=== PATIENT | male | born 1955 | race Caucasian/White ===

== ENCOUNTER 2020-08-14 09:46 | Outpatient (CLI) | payer OTHER, SELFPAY ==
--- NOTE | ~2020-08-14 | MR_ITS ---
EXAMINATION: MR shoulder LT wo con DATE: 08/14/2020 10:38 INDICATION: Left shoulder pain TECHNIQUE: Magnetic resonance imaging (MRI) of the left shoulder was performed without intravenous co ntrast. Sequences included axial PD-weighted FS FSE, coronal oblique PD-weighted FS FSE, coronal obli que T2-weighted FS FSE, sagittal PD-weighted FS FSE, and sagittal T1-weighted SE. COMPARISON: None. FINDINGS: Coracoacromial arch: The acromion undersurface is minimally curved in morphology (type I-II). The coracoacromial ligament is normal. Moderate acromioclavicular osteoarthritis with small inferiorly directed osteophytes. Rotator cuff: Mild supraspinatus and infraspinatus tendinopathy. Small full-thickness tear along the superior facet footplate of the posterior supraspinatus tendon which measures 6 mm AP along the articular side and 3 mm at the bursal side of the tear and without retraction measuring 2 mm medial to lateral. The jelani s minor tendon is normal. Mild to moderate subscapularis tendinopathy with mild intrasubstance split tearing extending up to 1.2 cm medially from the lesser tuberosity footplate both without measurable tear defect or retracted tear margin. Normal rotator cuff muscle bulk and signal. Biceps tendon, glenoid labrum and glenohumeral cartilage: Mild tendinopathy and longitudinal split tearing at the junction of the intra and extra articular hernan g head biceps tendon which is partially subluxed across the medial rim of the intertubercular groove along the longitudinal split tears at the cephalad aspect of the subscapularis tendon. Glenoid labrum is normal. Small region of deep chondral fissuring with underlying subarticular cystic change at the anteroinferior rim of the glenoid. Remaining cartilage in the glenohumeral joint appears normal. Fluid: Mild tenosynovitis with small amount of fluid in the long head biceps tendon sheath. There is also a small minimal joint effusion with mild synovitis at the axillary recess. No loose osteochondral yogesh s. There is extension of fluid from the glenohumeral joint space into the subacromial/subdeltoid burs a where there is additional synovitis consistent with mild bursitis. Bones: Aside from the mild degenerative some reticular edema at the acromioclavicular joint and mild cystic change at the anteroinferior glenoid there is normal marrow signal. No fracture or pathologic marrow replacing process. IMPRESSION: 1. Mild supraspinatus and infraspinatus tendinopathy with small full-thickness tear at the posterior supraspinatus tendon insertion. 2. Mild subscapularis tendinopathy with small longitudinal split tears arising along the lesser tuber osity footplate. 3. Mild bicipital tenosynovitis with mild tendinopathy and longitudinal split tearing of the tendon w hich is partially subluxed along the cephalad aspect of the medial rim of the intertubercular groove at the site of one of the subscapularis tendon split tears. 4. Mild subacromial/subdeltoid bursitis. 5. Mild glenohumeral and moderate acromioclavicular osteoarthritis. Reviewed, dictated and finalized at location B. IMPRESSION: 1. Mild supraspinatus and infraspinatus tendinopathy with small full-thickness tear at the posterior supraspinatus tendon insertion. 2. Mild subscapularis tendinopathy with small longitudinal split tears arising along the lesser tuberosity footplate. 3. Mild bicipital tenosynovitis with mild tendinopathy and longitudinal split t earing of the tendon which is partially subluxed along the cephalad aspect of t he medial rim of the intertubercular groove at the site of one of the subscapul chun tendon split tears. 4. Mild subacromial/subdeltoid bursitis. 5. Mild glenohumeral and moderate acromioclavicular o
== END 2020-08-14 09:47 | disposition home or self-care (01) ==
PROVIDERS: PCP Family Medicine; Visit Provider Physician Assistant
DX: M25.512 Pain in left shoulder (principal); M19.012 Primary osteoarthritis, left shoulder; M75.52 Bursitis of left shoulder
CPT/HCPCS: 73221

== ENCOUNTER 2020-08-27 01:47 | Outpatient (CLI) | payer OTHER, SELFPAY ==
[2020-08-27 18:17] LABS: SARS-CoV-2 RNA PCR Negative
== END 2020-08-27 01:48 | disposition home or self-care (01) ==
LOC: ANHCOVIDDT 01:47
PROVIDERS: PCP Family Medicine; Visit Provider Orthopaedic Surgery
DX: Z01.812 Encounter for preprocedural laboratory examination (principal); Z20.828 Contact with and (suspected) exposure to other viral communicable diseases
CPT/HCPCS: 87635; C9803; U0003

== ENCOUNTER 2020-08-29 01:40 | Day surgery (SDC) | payer OTHER, SELFPAY ==
[2020-08-25 09:23] VITALS: BMI 25.7
[2020-08-29] VITALS (9 sets, daily range): BP systolic 149–166; BP diastolic 86–115; PULSE 64–82; RESP 10–16; TEMP 36.1–36.4; O2SAT 93–99
--- NOTE | 2020-08-29 07:27 | WPDHPUPDATE1 ---
History and Physical Update Update Date/Time: 08/29/20 07:27 History and Physical has been reviewed, including an updated exam of the patient. There are NO changes in the patient's condition. Risks, benefits, and alternatives have been discussed and questions answered. Patient agrees to proceed with procedure.
[2020-08-29] MEDS: LACTATED RINGERS 1,000 ML 30 ML IV CONT ×2 (11:10→17:50)
[2020-08-29] MEDS: KETOROLAC 15 MG/ML VIAL (*BKC) IV PUSH (11:17)
--- NOTE | 2020-08-29 12:13 | WPDANESEPPF ---
Anes - Initial Pre Proc Eval Procedure: Operation Date: 08/29/20 12:30 Proposed Procedures p Left Shoulder Arthroscopy, Rotator Cuff Repair, Bicep Tenodesis, Subacromial Decompression - Julian Cordova MD Date/Time: 08/29/20 12:13 Surgeon: Julian Cordova MD Pre Op Diagnosis: Rotator Cuff Tear Left Shoulder Patient Data Age: 64 Gender: M Height: 1.75 m Weight: 78.93 kg Allergies Allergy/AdvReac Type Severity Reaction Status Date / Time No Known Allergies Allergy Verified 08/25/20 09:24 Home Medications Medication Instructions Recorded Confirmed Type aspirin 81 mg PO DAILY 09/27/19 08/29/20 History sildenafil 100 mg tablet 100 mg PO DAILY PRN 10/02/19 08/29/20 History ezetimibe 10 mg-simvastatin 10 mg 1 tablet PO DAILY #90 tablet 01/02/20 08/29/20 Rx tablet testosterone enanthate 75 mg/0.5 75 mg SUB-Q WEEKLY #2 ml 02/28/20 08/29/20 Rx mL subcutaneous auto-injector vfxthljgexc-hvsxvrmgw-sye C-Mn 2 cap PO DAILY 08/25/20 08/29/20 History [Glucosamine-Chondroitin Max St] Patient hx anesthesia problems: none Family hx anesthesia problems: none PMFSH Past Medical History Medical History (Updated 08/20/20 @ 17:46 by Julian Cordova MD) CVA (cerebrovascular accident) GI bleed Hernia Hyperlipidemia Impingement syndrome, shoulder, 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 Patent foramen ovale PFO (patent foramen ovale) Rectal bleed Rotator cuff tear Traumatic tear of left rotator cuff Surgical History Surgical History H/O hernia repair H/O wrist surgery right History of knee surgery rotbilateral History of rotator cuff surgery S/P patent foramen ovale closure Family History Family History Father Hypertension Family history of elevated blood lipids Family history of coronary artery disease Mother Family history of elevated blood lipids Social History Social History Smoking status: Never smoker Alcohol intake: never Spiritual care concerns: No Anes - Eval Final PreProcedure Day of Procedure 08/29/20 12:13 Patient weight: overweight Heart: regular rate and rhythm Lungs: clear to auscultation and normal air movement Airway: Mallampati scale class II Neurological: alert and oriented Last oral intake: >/= 8 hours ASA classification: III Emergent: no Anesthetic plan: proceed Anesthesia type and monitoring: general ETT and standard monitoring Informed Consent: The patient's anesthetic plan and its attendant risks and benefits were discussed with the patient/family/POA. Questions were solicited and answers provided to the satisfaction of the patient/family/POA.
--- NOTE | 2020-08-29 13:15 | WPDANESPNB ---
Anes - Peripheral Nerve Block Date/Time: 08/29/20 13:15 I have discussed with the patient/family/POA the placement of a peripheral nerve block for post-operative pain management, including associated risks, benefits, complications, and side effects. Alternative methods of post-operative analgesia were detailed. Questions were solicited and answers provided to the satisfaction of the patient/family/POA. Time-Out: A pre-procedural Time-Out was completed immediately before starting the procedure and confirmed: Patient Identification, Site, Procedure, Patient Position and the Availability of Requisite Equipment. Clinical Indications: Acute post-operative pain management requested by the operative surgeon. Nerve Block Insertion Note Anes-nerve block: supraclavicular left Patient position: supine Skin prep: chlorhexidine Needle: 22 gauge, stimulating, insulated echogenic needle. Needle length: 80 mm Technique: ultrasound (in plane) Injectate: bupivacaine 0.5% with epi 5 mcg/ml (20cc) Observations: tolerated well Complications: none Procedure start time:: 1420 Procedure end time:: 1425
[2020-08-29] MEDS: ceFAZolin 2 GM/D5W 50 ML 2 GM/50 ML BAG IVPB (14:36)
--- NOTE | 2020-08-29 17:49 | PM.PROC ---
Procedure Note - Detailed Date of procedure: 08/29/20 Pre-op diagnosis: Rotator Cuff Tear Left Shoulder Post-op diagnosis: other ( 1. Complete rotator cuff tear supraspinatus tendon and partial tear of the upper subscapularis tendon. 2. Long head Biceps tendinosis 3. Subacromial impingement syndrome.) Procedure performed: 1. Arthrosocopic rotator cuff repair. 2. Arthroscopic subacromial decompression. 3. Mini open subpectoral biceps tenodesis. Anesthesia: GETA Surgeon: Julian Cordova MD Estimated blood loss (mL): 20 Pathology: none sent Complications: None Condition: stable Disposition: PACU Findings: Operative detail: Preoperative antibiotics were given. An interscalene block was administered in the preoperative area. The patient was bought brought to the operating room. A general anesthetic was administered. The patient was carefully positioned in the beach chair position. The head and neck were carefully positioned. The non operative extremity was also carefully positioned. The shoulder was prepped and draped in the usual sterile fashion. Examination was performed. Standard posterior and anterior arthroscopic portals were established. Inflow achieved with the arthroscopic pump using saline and epinephrine. The glenohumeral joint was carefully inspected. the articularly articular cartilage was normal. The articular cartilage showed minimal grade 1 chondromalacia at the superior aspect of the humeral head. The glenoid was intact. There was a moderate synovitis and capsulitis. The biceps tendon showed high-grade tendinosis with partial tearing. The superior labrum was unstable. The biceps tendon was released for later tenodesis. The supraspinatus was hyperemic. The upper border of the subscapularis had high-grade partial-thickness delaminated tearing. This was consistent with the history of biceps tendon subluxation into the defect. A single metallic suture anchor was placed with double loaded sutures passed through the upper border of the subscapularis. A nice repair was accomplished with anatomic taoist of the appearance of the rolled border of the subscapularis. The supraspinatus was also shown to have a small to medium size tear when viewing from the articular side. Attention was turned to the subacromial space. A complete bursectomy was performed. The rotator cuff and footprint were lightly debrided. There was definite evidence of external impingement on the coracoacromial ligament and anterolateral subacromial spur. A modest acromioplasty was performed. The tear configuration was carefully assessed. It was a crescent type medium size tear. Just large enough for a 2 tunnel repair. At this point, 2 tunnels were created at the rotator cuff. One anterior and 1 posterior. The ArthroTunneler technique was utilized. Three sutures were passed through each tunnel. All sutures were then passed through the cuff tissue. The sutures were tied arthroscopically with the rip-stop technique. The arthroscopic instruments were removed. An axillary incision was created at the pectoralis major insertion. The interval between the pectoralis and the short head of the biceps was dissected. The long head was identified. A retractor was placed at the pectoralis. The biceps was delivered into the wound. A Krackow stitch was placed using #2 Orthocord suture at the musculotendinous junction. The 7.5 mm acParacelsus Labs reamer was used to ream a unicortical hole just proximal to the pectoralis. Two 2.5 mm holes were placed one centimeter distal, in a triangular pattern. The Orthocord sutures were shuttled through the holes. The tendon was docked anatomically and tied on bone. The wound was irrigated and closed with 2-0 Vicryl suture and 3-0 Monocryl suture, followed by running 4-0 Monocryl, and Steri-Strips. The wounds were closed with 3-0 Monocryl subcuticular suture and steri strips. There were no complications. A sling was applied and the patient
[2020-08-29] MEDS: fentaNYL CITRATE INJ (*CRX) 100 MCG/2 ML VIAL 25 MCG IV PUSH ×5 (18:08→18:57)
[2020-08-29] MEDS: oxyCODONE/ACETAMINOPHEN (*CRX) 5-325 MG TABLET 1 TABLET PO (19:28)
[2020-08-29] MEDS: KETOROLAC 30 MG/ML VIAL (*BKC) IV PUSH (20:11)
== END 2020-08-29 20:45 | disposition home or self-care (01) ==
PROVIDERS: PCP Family Medicine; Visit Provider Orthopaedic Surgery
PROC: (CPT 29805; principal; 2020-08-29 12:30)
DX: S46.012A Strain of muscle(s) and tendon(s) of the rotator cuff of left shoulder, initial encounter (principal); V18.0XXA Pedal cycle driver injured in noncollision transport accident in nontraffic accident, initial encounter; G89.18 Other acute postprocedural pain; E78.5 Hyperlipidemia, unspecified; Q21.1 Atrial septal defect; Z86.73 Personal history of transient ischemic attack (TIA), and cerebral infarction without residual deficits; I87.1 Compression of vein
CPT/HCPCS: 29827; 29826; 23430; 64415; A4565; A9270; C1713; J0690; J1100; J1885; J2250; J2405; J2704; J3010; J7120

== ENCOUNTER 2020-10-08 08:00 | Outpatient (CLI) | payer OTHER, SELFPAY ==
[2020-10-08 08:13] LABS: Basophils Absolute Auto 0.1 K/mm3 (0.0-0.1); Basophils Percent Auto 1.1 % (0.2-1.2); Eosinophils Absolute Auto 0.2 K/mm3 (0-0.3); Eosinophils Percent Auto 3.2 % (0-4.4); Hematocrit 46.3 % (42.0-52.0); Hemoglobin 15.6 g/dL (14.0-18.0); Immature Granulocyte Absolute 0.01 K/mm3 (0.00-0.031); Immature Granulocyte Percent A 0.2 % (0-0.5); Lymphocytes Absolute Auto 1.52 K/mm3 (0.9-3.2); Lymphocytes Percent Auto 32.7 % (18.3-44.2); Mean Corpuscular HGB Conc 33.7 g/dl (32-36); Mean Corpuscular Hemoglobin 29.2 pg (26-34); Mean Corpuscular Volume 86.5 fl (80-100); Mean Platelet Volume 8.4 fl (7.4-10.4); Monocytes Absolute Auto 0.5 K/mm3 (0.1-0.6); Neutrophils Absolute Auto 2.4 K/mm3 (1.3-6.7); Neutrophils Percent Auto 51.8 % (45.5-73.1); Platelet Count Result 201 k/mm3 (150-375); Red Blood Count 5.35 M/mm3 (4.6-6.20); Red Cell Distribution Width 13.1 % (11.5-14.5); White Blood Count 4.7 K/mm3 (4.5-10.0)
[2020-10-08 08:27] LABS: Alanine Aminotransferase 21 U/L (4-50); Albumin Level 4.3 g/dL (3.5-5.1); Alkaline Phosphatase 77 U/L (38-126); Anion Gap 7 mmol/L (8-16); Aspartate Amino Transferase 27 U/L (17-59); Bilirubin,Total 0.9 mg/dL (0.2-1.3); Blood Urea Nitrogen 14 mg/dL (9-20); Calcium 9.2 mg/dL (8.4-10.2); Carbon Dioxide 28 mmol/L (22-30); Chloride 104 mmol/L (98-107); Estimated Glomerular Filt Rate > 60; Glucose 94 mg/dL (75-110); Potassium 4.1 mmol/L (3.4-5.0); Sodium 139 mmol/L (137-145)
== END 2020-10-08 08:01 | disposition home or self-care (01) ==
PROVIDERS: PCP Family Medicine; Visit Provider Family Medicine
DX: E29.1 Testicular hypofunction (principal); Z79.899 Other long term (current) drug therapy
CPT/HCPCS: 36415; 80053; 85025

== ENCOUNTER 2020-11-12 10:01 | Outpatient (CLI) | payer OTHER, SELFPAY ==
[2020-11-16 10:16] LABS: Testosterone Free 47.9 pg/mL (35.0-155.0); Testosterone Total 340 ng/dL (250-1100)
== END 2020-11-12 10:02 | disposition home or self-care (01) ==
PROVIDERS: PCP Family Medicine; Visit Provider Family Medicine
DX: E29.1 Testicular hypofunction (principal); Z79.899 Other long term (current) drug therapy
CPT/HCPCS: 36415; 84402; 84403

== ENCOUNTER 2021-08-10 08:36 | Outpatient (CLI) | payer MEDICARE, SELFPAY ==
[2021-08-10 09:13] LABS: Basophils Absolute Auto 0.1 K/mm3 (0.0-0.1); Basophils Percent Auto 1.1 % (0.2-1.2); Eosinophils Absolute Auto 0.1 K/mm3 (0-0.3); Eosinophils Percent Auto 2.4 % (0-4.4); Hematocrit 43.5 % (42.0-52.0); Hemoglobin 14.4 g/dL (14.0-18.0); Immature Granulocyte Absolute 0.04 K/mm3 (0.00-0.031); Immature Granulocyte Percent A 0.7 % (0-0.5); Lymphocytes Absolute Auto 1.48 K/mm3 (0.9-3.2); Lymphocytes Percent Auto 26.8 % (18.3-44.2); Mean Corpuscular HGB Conc 33.1 g/dl (32-36); Mean Corpuscular Hemoglobin 29.5 pg (26-34); Mean Corpuscular Volume 89.1 fl (80-100); Mean Platelet Volume 8.9 fl (7.4-10.4); Monocytes Absolute Auto 0.5 K/mm3 (0.1-0.6); Monocytes Percent Auto 8.3 % (2.6-8.5); Neutrophils Absolute Auto 3.4 K/mm3 (1.3-6.7); Neutrophils Percent Auto 60.7 % (45.5-73.1); Platelet Count Result 214 k/mm3 (150-375); Red Blood Count 4.88 M/mm3 (4.6-6.20); White Blood Count 5.5 K/mm3 (4.5-10.0)
[2021-08-10 09:17] LABS: Alanine Aminotransferase 25 U/L (4-50); Albumin Level 4.7 g/dL (3.5-5.1); Alkaline Phosphatase 58 U/L (38-126); Anion Gap 6 mmol/L (8-16); Aspartate Amino Transferase 30 U/L (17-59); Bilirubin,Total 0.9 mg/dL (0.2-1.3); Blood Urea Nitrogen 15 mg/dL (9-20); Calcium 9.3 mg/dL (8.4-10.2); Carbon Dioxide 26 mmol/L (22-30); Chloride 106 mmol/L (98-107); Cholesterol 198 mg/dL (0-200); Estimated Glomerular Filt Rate > 60; Glucose 97 mg/dL (65-110); HDL Direct 50 mg/dL; Potassium 4.3 mmol/L (3.4-5.0); Sodium 138 mmol/L (137-145); Triglycerides 128 mg/dL (<150)
[2021-08-10 10:08] LABS: LDL Cholesterol Direct 120 mg/dL
[2021-08-14 00:10] LABS: Testosterone Total 408 ng/dL (250-1100)
== END 2021-08-10 08:37 | disposition home or self-care (01) ==
PROVIDERS: PCP Family Medicine; Visit Provider Family Medicine
DX: E88.81 Metabolic syndrome and other insulin resistance (principal); E78.5 Hyperlipidemia, unspecified
CPT/HCPCS: 36415; 80053; 80061; 84403; 85025

== ENCOUNTER 2021-10-15 01:45 | Day surgery (SDC) | payer MEDICARE, SELFPAY ==
[2021-10-06 14:51] VITALS: BMI 27.0
--- NOTE | 2021-10-15 07:37 | WPDANESEPPF ---
Anes - Initial Pre Proc Eval Procedure: Operation Date: 10/15/21 09:00 Proposed Procedures p Screening Colonoscopy - Collins Leahy MD Date/Time: 10/15/21 07:37 Surgeon: Collins Leahy MD Pre Op Diagnosis: hx of colon polyps Patient Data Age: 65 Gender: M Height: 1.75 m Weight: 83 kg Allergies Allergy/AdvReac Type Severity Reaction Status Date / Time No Known Allergies Allergy Verified 08/13/21 10:33 Home Medications Medication Instructions Recorded Confirmed Type aspirin 81 mg PO DAILY 09/27/19 10/15/21 History bmhtvpsnewn-lahgrrfoh-pbc C-Mn 2 cap PO DAILY 08/25/20 10/15/21 History [Glucosamine-Chondroitin Max St] ezetimibe-simvastatin 1 tablet PO DAILY 10/06/21 10/15/21 History Patient hx anesthesia problems: none Family hx anesthesia problems: none Results Review: All pre-operative results and documents have been reviewed as part of the pre-operative evaluation. 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, bilateral Patent foramen ovale PFO (patent foramen ovale) Rectal bleed Rotator cuff tear Traumatic tear of left rotator cuff Surgical History Surgical History H/O hernia repair H/O wrist surgery right History of knee surgery rotbilateral History of rotator cuff surgery S/P patent foramen ovale closure Family History Family History Father Hypertension Family history of elevated blood lipids Family history of coronary artery disease Mother Family history of elevated blood lipids Social History Social History (Reviewed 08/13/21 @ 10:33 by Adina Duong [facility]) Smoking status: Never smoker Alcohol intake: never Substance use type: does not use Living arrangements: with family Spiritual care concerns: No Anes - Eval Final PreProcedure Day of Procedure 10/15/21 07:37 Patient weight: overweight Heart: regular rate and rhythm Lungs: clear to auscultation and normal air movement Airway: Mallampati scale class II Neurological: alert and oriented Last oral intake: >/= 8 hours ASA classification: III Emergent: no Anesthetic plan: proceed Anesthesia type and monitoring: general GIVS and standard monitoring Results Review: All pre-operative results and documents have been reviewed as part of the pre-operative evaluation. Informed Consent: The patient's anesthetic plan and its attendant risks and benefits were discussed with the patient/family/POA. Questions were solicited and answers provided to the satisfaction of the patient/family/POA.
[2021-10-15 08:19] VITALS: BP 141/102; PULSE 64; RESP 18; TEMP 36.3; O2SAT 99; BMI 26.8
--- NOTE | 2021-10-15 08:26 | WPDGICN ---
Assessment and Plan Assessment and plan (1) Rectal bleeding: Code(s): K62.5 - Hemorrhage of anus and rectum Status: Acute Assessment and Plan: patient reports intermittent rectal bleeding. This will be assessed at the time of colonoscopy. High-fiber diet advised for possible hemorrhoids further recommendations will be given after endoscopy. (2) Colon cancer screening: Code(s): Z12.11 - Encounter for screening for malignant neoplasm of colon Status: Acute Assessment and Plan: Patient has a history of adenomatous colon polyp removed from the colon 5 years ago. Plan is for surveillance colonoscopy at this time and consider this a 5 year intervals in the future. GI Consult Note Consult date/time: 10/15/21 08:26 HPI: Tushar Chaves is a 65 year old male Presents for surveillance colonoscopy. Patient's current weight appetite and bowel movements are normal. Patient reports occasionally having dark flecks in his stool and occasional bright red in his stool often this will last for 1-2 days and may occur every several months. He denies any abdominal or rectal pain. His bowel habits are regular. Patient does have a past medical history of adenomatous colon polyp removed from the colon 2015. Family history is noncontributory. Patient presents today for screening colonoscopy. 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, bilateral Patent foramen ovale PFO (patent foramen ovale) Rectal bleed Rotator cuff tear Traumatic tear of left rotator cuff Surgical History Surgical History H/O hernia repair H/O wrist surgery right History of knee surgery rotbilateral History of rotator cuff surgery S/P patent foramen ovale closure Family History Family History Father Hypertension Family history of elevated blood lipids Family history of coronary artery disease Mother Family history of elevated blood lipids Social History Social History Smoking status: Never smoker Alcohol intake: never Substance use type: does not use Living arrangements: with family Spiritual care concerns: No Meds Home Medications and Allergies Home Medications Medication Instructions Recorded Confirmed Type aspirin 81 mg PO DAILY 09/27/19 10/15/21 History nvouepzzmft-lddxzsqyx-lpl C-Mn 2 cap PO DAILY 08/25/20 10/15/21 History [Glucosamine-Chondroitin Max St] ezetimibe-simvastatin 1 tablet PO DAILY 10/06/21 10/15/21 History Allergies Allergy/AdvReac Type Severity Reaction Status Date / Time No Known Allergies Allergy Verified 08/13/21 10:33 Vital Signs Vital Signs - 24 hr 10/15/21 08:19 Temperature 97.3 F L Pulse Rate 64 Respiratory Rate 18 Blood Pressure 141/102 H Pulse Oximetry 99 Exam Narrative: Physical exam reveals patient be alert. Vital signs stable. HEENT exam is unremarkable. Patient is anicteric. Lungs are clear to auscultation and percussion. Heart is without murmur or extra sounds. Abdominal exam bowel sounds are present soft nontender with no hepatosplenomegaly. Digital external rectal exam is normal.
[2021-10-15] MEDS: LACTATED RINGERS 1,000 ML 150 ML IV CONT (08:28)
[2021-10-15 09:08] VITALS: BP 113/76; PULSE 73; RESP 19; O2SAT 96
[2021-10-15 09:18] VITALS: BP 110/72; PULSE 69; RESP 10; O2SAT 96
[2021-10-15 09:28] VITALS: BP 111/77; PULSE 63; RESP 13; O2SAT 96
== END 2021-10-15 09:36 | disposition home or self-care (01) ==
PROVIDERS: PCP Family Medicine; Visit Provider Internal Medicine Gastroenterology
PROC: 0DJD8ZZ Inspection of Lower Intestinal Tract, Via Natural or Artificial Opening Endoscopic (ICD-10-PCS; CPT 45378; principal; 2021-10-15 09:00)
DX: Z12.11 Encounter for screening for malignant neoplasm of colon (principal); K64.8 Other hemorrhoids; K62.5 Hemorrhage of anus and rectum; Z86.010 Personal history of colon polyps; E78.5 Hyperlipidemia, unspecified; Q21.1 Atrial septal defect; Z79.82 Long term (current) use of aspirin; Z86.73 Personal history of transient ischemic attack (TIA), and cerebral infarction without residual deficits
CPT/HCPCS: G0105; J2704; J7120

== ENCOUNTER 2022-09-22 09:36 | Outpatient (CLI) | payer MEDICARE, SELFPAY ==
[2022-09-22 18:29] LABS: Basophils Absolute Auto 0.1 K/mm3 (0.0-0.1); Basophils Percent Auto 1.2 % (0.2-1.2); Eosinophils Absolute Auto 0.2 K/mm3 (0-0.3); Eosinophils Percent Auto 2.6 % (0-4.4); Hematocrit 46.3 % (42.0-52.0); Hemoglobin 15.5 g/dL (14.0-18.0); Immature Granulocyte Absolute 0.02 K/mm3 (0.00-0.031); Immature Granulocyte Percent A 0.3 % (0-0.5); Lymphocytes Absolute Auto 1.49 K/mm3 (0.9-3.2); Lymphocytes Percent Auto 25.7 % (18.3-44.2); Mean Corpuscular HGB Conc 33.5 g/dl (32-36); Mean Corpuscular Hemoglobin 29.5 pg (26-34); Monocytes Absolute Auto 0.5 K/mm3 (0.1-0.6); Monocytes Percent Auto 8.5 % (2.6-8.5); Neutrophils Absolute Auto 3.6 K/mm3 (1.3-6.7); Neutrophils Percent Auto 61.7 % (45.5-73.1); Platelet Count Result 267 k/mm3 (150-375); Red Blood Count 5.26 M/mm3 (4.6-6.20); Red Cell Distribution Width 13.2 % (11.5-14.5); White Blood Count 5.8 K/mm3 (4.5-10.0)
[2022-09-22 18:41] LABS: Alanine Aminotransferase 22 U/L (6-50); Albumin Level 4.6 g/dL (3.5-5.1); Alkaline Phosphatase 91 U/L (38-126); Anion Gap 12 mmol/L (8-16); Aspartate Amino Transferase 37 U/L (17-59); Bilirubin,Total 0.9 mg/dL (0.2-1.3); Blood Urea Nitrogen 14 mg/dL (9-20); Calcium 9.1 mg/dL (8.4-10.2); Carbon Dioxide 25 mmol/L (22-30); Chloride 103 mmol/L (98-107); Cholesterol 197 mg/dL (0-200); Estimated Glomerular Filt Rate > 60; Glucose 92 mg/dL (65-110); HDL Direct 43 mg/dL; Potassium 4.2 mmol/L (3.4-5.0); Sodium 140 mmol/L (137-145); Triglycerides 163 mg/dL (<150)
[2022-09-22 18:54] LABS: LDL Cholesterol Direct 102 mg/dL
[2022-09-22 19:10] LABS: Prostate Specific Antigen 0.6 ng/mL (< OR = 4.0)
[2022-09-29 10:49] LABS: Testosterone Free 39.3 pg/mL (35.0-155.0); Testosterone Total 333 ng/dL (250-1100)
== END 2022-09-22 09:37 | disposition home or self-care (01) ==
LOC: ANHGOSHLAB 09:42
PROVIDERS: PCP Family Medicine; Visit Provider Physician Assistant
DX: E88.81 Metabolic syndrome and other insulin resistance (principal); E78.2 Mixed hyperlipidemia; Z12.31 Encounter for screening mammogram for malignant neoplasm of breast; Z79.899 Other long term (current) drug therapy; Z12.5 Encounter for screening for malignant neoplasm of prostate
CPT/HCPCS: 36415; 80053; 80061; 84153; 84402; 84403; 84443; 85025; G0103

== ENCOUNTER → 2023-02-10 09:46 | Outpatient (CLI) | payer MEDICARE, SELFPAY ==
--- NOTE | ~2023-02-10 | XR_ITS ---
PA, oblique, and lateral views of the right thumb Clinical history: Pain FINDINGS: There is mild degenerative change at the first CMC joint and interphalangeal joint of the t humb. No fracture or dislocation seen. Soft tissues are unremarkable. IMPRESSION: Mild degenerative change at the first CMC joint and at the interphalangeal joint of the thumb. Reviewed, dictated and finalized at location . IMPRESSION: Mild degenerative change at the first CMC joint and at the interphalangeal join t of the thumb.
--- NOTE | ~2023-02-10 | XR_ITS ---
Right wrist Technique: PA, oblique, lateral, and ulnar deviation views were obtained. Clinical History: Pain Findings: No acute fracture or dislocation is seen. Osseous alignment is anatomic. There is mild dege nerative change at the first CMC joint and STT articulations. Moderate to advanced degenerative fatima e at the fifth DIP joint. Soft tissues are unremarkable. Impression: Mild degenerative change at the first CMC joint and STT articulations. Moderate to advanced degenerative change at the fifth DIP joint. Reviewed, dictated and finalized at location M. Impression: Mild degenerative change at the first CMC joint and STT articulations. Moderate to advanced degenerative change at the fifth DIP joint.
== END ==
PROVIDERS: PCP Family Medicine; Visit Provider Physician Assistant
DX: M25.531 Pain in right wrist (principal); R93.6 Abnormal findings on diagnostic imaging of limbs
CPT/HCPCS: 73110; 73140

== ENCOUNTER 2023-08-18 08:58 | Outpatient (CLI) | payer MEDICARE, SELFPAY ==
[2023-08-18 18:56] LABS: Anion Gap 8 mmol/L (8-16); Blood Urea Nitrogen 16 mg/dL (9-20); Calcium 9.1 mg/dL (8.4-10.2); Carbon Dioxide 27 mmol/L (22-30); Chloride 104 mmol/L (98-107); Cholesterol 196 mg/dL (0-200); Estimated Glomerular Filt Rate > 60; Glucose 88 mg/dL (65-110); HDL Direct 58 mg/dL; Potassium 4.3 mmol/L (3.4-5.0); Sodium 139 mmol/L (137-145); Triglycerides 97 mg/dL (<150)
[2023-08-18 19:03] LABS: Basophils Absolute Auto 0.1 K/mm3 (0.0-0.1); Basophils Percent Auto 1.3 % (0.2-1.2); Eosinophils Absolute Auto 0.1 K/mm3 (0-0.3); Eosinophils Percent Auto 3.3 % (0-4.4); Hematocrit 46.1 % (42.0-52.0); Hemoglobin 14.7 g/dL (14.0-18.0); Immature Granulocyte Absolute 0.01 K/mm3 (0.00-0.031); Immature Granulocyte Percent A 0.3 % (0-0.5); Lymphocytes Absolute Auto 1.49 K/mm3 (0.9-3.2); Lymphocytes Percent Auto 37.7 % (18.3-44.2); Mean Corpuscular HGB Conc 31.9 g/dl (32-36); Mean Corpuscular Hemoglobin 28.9 pg (26-34); Mean Corpuscular Volume 90.7 fl (80-100); Mean Platelet Volume 9.5 fl (7.4-10.4); Monocytes Absolute Auto 0.4 K/mm3 (0.1-0.6); Monocytes Percent Auto 10.6 % (2.6-8.5); Neutrophils Absolute Auto 1.9 K/mm3 (1.3-6.7); Neutrophils Percent Auto 46.8 % (45.5-73.1); Platelet Count Result 265 k/mm3 (150-375); Red Blood Count 5.08 M/mm3 (4.6-6.20); Red Cell Distribution Width 13.2 % (11.5-14.5)
[2023-08-18 19:10] LABS: LDL Cholesterol Direct 106 mg/dL
[2023-08-21 14:43] LABS: Testosterone Total 396 ng/dL (250-1100)
[2023-08-22 07:37] LABS: Testosterone Free 52.7 pg/mL (46.0-224.0)
== END 2023-08-18 08:59 | disposition home or self-care (01) ==
PROVIDERS: PCP Family Medicine; Visit Provider Nurse Practitioner Family
DX: E66.3 Overweight (principal); J30.0 Vasomotor rhinitis; E29.1 Testicular hypofunction
CPT/HCPCS: 36415; 80048; 80061; 84402; 84403; 84443; 85025

== ENCOUNTER 2024-02-23 08:52 | Outpatient (CLI) | payer MEDICARE, SELFPAY ==
[2024-02-23 12:46] LABS: Basophils Absolute Auto 0.1 K/mm3 (0.0-0.1); Basophils Percent Auto 1.2 % (0.2-1.2); Eosinophils Absolute Auto 0.1 K/mm3 (0-0.3); Hematocrit 45.3 % (42.0-52.0); Hemoglobin 14.7 g/dL (14.0-18.0); Immature Granulocyte Absolute 0.02 K/mm3 (0.00-0.031); Immature Granulocyte Percent A 0.5 % (0-0.5); Lymphocytes Absolute Auto 1.22 K/mm3 (0.9-3.2); Lymphocytes Percent Auto 28.2 % (18.3-44.2); Mean Corpuscular HGB Conc 32.5 g/dl (32-36); Mean Corpuscular Hemoglobin 29.1 pg (26-34); Mean Corpuscular Volume 89.5 fl (80-100); Monocytes Absolute Auto 0.4 K/mm3 (0.1-0.6); Neutrophils Absolute Auto 2.5 K/mm3 (1.3-6.7); Neutrophils Percent Auto 58.1 % (45.5-73.1); Platelet Count Result 278 k/mm3 (150-375); Red Blood Count 5.06 M/mm3 (4.6-6.20); Red Cell Distribution Width 12.9 % (11.5-14.5); White Blood Count 4.3 K/mm3 (4.5-10.0)
[2024-02-23 14:19] LABS: Cholesterol 191 mg/dL (0-200); HDL Direct 56 mg/dL; Triglycerides 139 mg/dL (<150)
[2024-02-23 14:20] LABS: Alanine Aminotransferase 19 U/L (6-50); Albumin Level 4.6 g/dL (3.5-5.1); Alkaline Phosphatase 68 U/L (38-126); Anion Gap 5 mmol/L (4-12); Aspartate Amino Transferase 49 U/L (17-59); Bilirubin,Total 1.1 mg/dL (0.2-1.3); Blood Urea Nitrogen 15 mg/dL (9-20); Calcium 9.4 mg/dL (8.4-10.2); Carbon Dioxide 27 mmol/L (22-30); Chloride 106 mmol/L (98-107); Estimated Glomerular Filt Rate > 60; Glucose 91 mg/dL (65-110); Potassium 4.5 mmol/L (3.4-5.0); Sodium 138 mmol/L (137-145)
[2024-02-23 14:31] LABS: LDL Cholesterol Direct 105 mg/dL
[2024-02-26 13:22] LABS: Testosterone Total 364 ng/dL (250-1100)
[2024-03-02 11:59] LABS: Creatinine, Random Urine 50 mg/dL (20-320); Metanephrine, Total Urine 247 (149-603); Metanephrine, Urine 53 (21-153); Normetanephrine, Urine 194 (108-524)
== END 2024-02-23 08:53 | disposition home or self-care (01) ==
PROVIDERS: PCP Family Medicine; Visit Provider Family Medicine
DX: E78.5 Hyperlipidemia, unspecified (principal); I16.9 Hypertensive crisis, unspecified
CPT/HCPCS: 36415; 80053; 80061; 82570; 83835; 84403; 84443; 85025

== ENCOUNTER 2024-06-25 07:55 | Inpatient (IN) | payer MEDICARE, SELFPAY ==
[2024-06-25] VITALS (15 sets, daily range): BP systolic 140–170; BP diastolic 84–127; PULSE 61–78; RESP 11–22; TEMP 36.3; O2SAT 93–98; BMI 28.8
--- NOTE | ~2024-06-25 | CT_ITS ---
Clinical Indication: Dissection CT Scan of the Chest, Abdomen, and Pelvis with Contrast: Technique: Contiguous sections were acquired throughout the chest, abdomen, and pelvis after intraven ous administration of 100 cc of Omnipaque 350. Dose reduction technique was used on this scan by maryam ortiz automated exposure control and iterative reconstruction technique. The dose-length product (DL P) was 746.08 mGy-cm. Findings: There is no evidence of any significant mediastinal, hilar or axillary lymphadenopathy. There is no t horacic aortic aneurysm or dissection. There is no evidence of pleural or pericardial effusion. The lungs are clear. No pulmonary nodules or infiltrates are noted. The liver, spleen, pancreas, gallbladder, adrenals and kidneys are within normal limits. No evidence of aortic aneurysm or dissection.. There are mild atherosclerotic calcifications of the abdominal ao rta. No lymphadenopathy. No bowel obstruction or bowel wall thickening. There is no evidence to suggest acute appendicitis. Urinary bladder is unremarkable. No pelvic mass seen. No ascites. Impression: No significant abnormalities seen. No evidence of aortic aneurysm or dissection. Reviewed, dictated and finalized at [facility]. Impression: No significant abnormalities seen. No evidence of aortic aneurysm or dissection .
--- NOTE | ~2024-06-25 | XR_ITS ---
EXAMINATION: XR chest 2V DATE: 06/25/2024 08:37 INDICATION: Chest pain TECHNIQUE: frontal and lateral views of the chest were obtained. COMPARISON: Chest radiograph dated 03/09/2017 FINDINGS: The lungs are clear with no focal airspace opacities, pulmonary edema, pleural effusion or pneumothor ax. Heart size is normal. Amplatz type ASD occlusion device in expected position. Suture anchor at th e left head likely for prior rotator cuff repair. IMPRESSION: 1. No acute cardiopulmonary disease. Reviewed, dictated and finalized at location A.
--- NOTE | 2024-06-25 07:56 | ECG_ITS ---
Test Date: 2024-06-25 08:51:17 Measurements Intervals [place] Rate: 65 P: 43 MA: 156 QRS: 26 QRSD: 148 T: 104 QT: 440 QTc: 460 Interpretive Statements SINUS RHYTHM RIGHT BUNDLE BRANCH BLOCK [120+ ms QRS DURATION, UPRIGHT V1, 40+ ms S IN I/aVL/V4/V5/V6] ABNORMAL ECG Compared to ECG 06/25/2024 08:02:54 NO DIFFERENCE Electronically Signed On 06-26-2024 07:18:20 CDT by Christopher Hernández M.D.
[2024-06-25 08:17] LABS: Basophils Percent Auto 0.7 % (0.2-1.2); Eosinophils Absolute Auto 0.1 K/mm3 (0-0.3); Eosinophils Percent Auto 2.2 % (0-4.4); Hematocrit 43.7 % (42.0-52.0); Hemoglobin 14.5 g/dL (14.0-18.0); Lymphocytes Absolute Auto 1.68 K/mm3 (0.9-3.2); Lymphocytes Percent Auto 30.1 % (18.3-44.2); Mean Corpuscular HGB Conc 33.2 g/dl (32-36); Mean Corpuscular Hemoglobin 29.5 pg (26-34); Mean Corpuscular Volume 88.8 fl (80-100); Monocytes Absolute Auto 0.6 K/mm3 (0.1-0.6); Monocytes Percent Auto 11.5 % (2.6-8.5); Neutrophils Absolute Auto 3.1 K/mm3 (1.3-6.7); Neutrophils Percent Auto 55.5 % (45.5-73.1); Platelet Count Result 282 k/mm3 (150-375); Red Blood Count 4.92 M/mm3 (4.6-6.20); Red Cell Distribution Width 13.1 % (11.5-14.5); White Blood Count 5.6 K/mm3 (4.5-10.0)
[2024-06-25 08:29] LABS: INR 0.8; Prothrombin Time 11.3 Seconds (11.1-14.7)
--- NOTE | 2024-06-25 08:45 | ECG_ITS ---
Test Date: 2024-06-25 08:02:54 Measurements Intervals [place] Rate: 67 P: 47 [place]: 155 QRS: 24 QRSD: 153 T: 98 QT: 429 QTc: 453 Interpretive Statements SINUS RHYTHM RIGHT BUNDLE BRANCH BLOCK [120+ ms QRS DURATION, UPRIGHT V1, 40+ ms S IN I/aVL/V4/V5/V6] ABNORMAL ECG No previous ECG available for comparison Electronically Signed On 06-26-2024 07:17:32 CDT by Christopher Hernández M.D.
--- NOTE | 2024-06-25 08:46 | ED.CHESTPAIN ---
HPI - Chest Pain General Chief Complaint: Chest Pain Stated Complaint: cp Time Seen by Provider: 06/25/24 08:09 History of Present Illness HPI narrative: This is a 68-year-old male with a past medical history significant for hypertension, hyperlipidemia who presents to the emergency room with chief complaint of chest pain that has been evolving over the last month duration. Patient states he has previously been seen by Cardiology and was discharged for service after clean bill of health and normal stress test just 1 year prior. He has a history of a PFO that was repaired 3 years prior and a stroke without any residual deficits from suspected thromboembolic disease. Patient presently takes aspirin daily but no other anticoagulation medications. No diagnosed history of DVT/PE. He states that his chest pain is with exertion and described as a burning sensation in the anterior central portion of his chest the of the sternum. He states that this pain is worse with exertion and usually subsides after about 15 minutes even while he is still exerting himself however over the last month he has been having this same exertional pain that does not subside even with rest. Evolution of the chest discomfort has been gradual over the last month and his primary care provider has been titrating down on his metoprolol dose but he has not sought any other evaluation or medical attention such as ER visits otherwise. Pain was not subsiding today so he wanted to get seen in the ED. 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 Denies any headache, vision change, nausea, vomiting, weakness or fatigue. No history of aortic syndrome aortic dissection and himself with the family. No trauma or recent injury/illnesses otherwise. Related Data Home Medications Medication Instructions Recorded Confirmed aspirin 81 mg chewable tablet 81 mg PO DAILY 09/27/19 03/28/24 vkahdnlyjqw-ectcdhotc-qmb C-Mn 500 2 cap PO DAILY 08/25/20 03/28/24 mg-400 mg capsule (Glucosamine-Chondroitin Max St) Allergies Allergy/AdvReac Type Severity Reaction Status Date / Time No Known Allergies Allergy Verified 05/30/24 13:18 Review of Systems Review of Systems: As reviewed above in the HPI [facility] Past Medical History Medical History Colon polyp CVA (cerebrovascular accident) GI bleed Hernia Hyperlipidemia Impingement syndrome, shoulder, 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, bilateral Patent foramen ovale PFO (patent foramen ovale) Rectal bleed Rotator cuff tear Traumatic tear of left rotator cuff Surgical History Surgical History H/O hernia repair H/O wrist surgery right History of knee surgery rotbilateral History of rotator cuff surgery S/P patent foramen ovale closure Family History Family History Father Hypertension Family history of elevated blood lipids Family history of coronary artery disease Mother Family history of elevated blood lipids Social History Social History Smoking status: Never smoker Alcohol intake: never Substance use type: does not use Do You Feel Safe in your Home?: Yes Lack of Transportation: No Lack of Food: Never True Current Housing: I Have Housing Concerned About Future Housing: No Difficulty Paying Gas/Electric Bills: No Difficulty Paying for Meds: No Currently Unemployed: No Education: Bachelor's Degree Difficulty w/ Childcare or Family Care: No Living arrangements: with family Spiritual care concerns: No Exam Narrative: GENERAL: [Well-appearing, well-nourished, and in no acute distress.] HEAD: [Normocephalic, atraumatic.] EYES: [PERR
[2024-06-25] MEDS: ASPIRIN 81 MG CHEWABLE TABLET 324 MG PO (08:52)
[2024-06-25 09:09] LABS: Estimated CRCL calculation 62 ml/min; Estimated Glomerular Filt Rate > 60
[2024-06-25 09:43] LABS: Alanine Aminotransferase 29 U/L (6-50); Albumin Level 4.4 g/dL (3.5-5.1); Alkaline Phosphatase 70 U/L (38-126); Anion Gap 9 mmol/L (4-12); Aspartate Amino Transferase 102 U/L (17-59); Blood Urea Nitrogen 15 mg/dL (9-20); Calcium 8.9 mg/dL (8.4-10.2); Carbon Dioxide 23 mmol/L (22-30); Chloride 105 mmol/L (98-107); Estimated CRCL calculation 69 ml/min; Estimated Glomerular Filt Rate > 60; Glucose 96 mg/dL (65-110); Lipase 110 U/L (23-300); Potassium 4.1 mmol/L (3.4-5.0); Sodium 137 mmol/L (137-145)
[2024-06-25] MEDS: HEPARIN SODIUM 5,000 UNITS/ML VIAL 4000 UNITS IV PUSH (10:29)
[2024-06-25] MEDS: HEPARIN SOD/D5W 100 UNITS/ML 25,000 UNITS/250 ML BAG 10 UNITS IV CONT ×2 (10:33→14:21)
--- NOTE | 2024-06-25 11:00 | ECG_ITS ---
Test Date: 2024-06-25 11:15:21 Measurements Intervals [place] Rate: 68 P: 70 [place]: 156 QRS: 7 QRSD: 150 T: 132 QT: 446 QTc: 475 Interpretive Statements SINUS RHYTHM RIGHT BUNDLE BRANCH BLOCK [120+ ms QRS DURATION, UPRIGHT V1, 40+ ms S IN I/aVL/V4/V5/V6] ABNORMAL ECG Compared to ECG 06/25/2024 08:51:17 NO DIFFERENCE Electronically Signed On 06-26-2024 07:22:38 CDT by Christopher Hernández M.D.
--- NOTE | 2024-06-25 11:12 | PM.IMHP ---
H&P: HPI History of Present Illness Date/Time: 06/25/24 11:12 Chief Complaint: Exertional chest pain Narrative: this is a 68-year-old man with no prior history of coronary disease who entered the emergency room today reporting chest pain I am seeing him in the ER consultation because of significant elevated troponin. The symptoms of chest pain he says began about 2 months ago. This is a gentleman who enjoys a good level of his aerobic fitness who exercises regularly and a couple of months ago notice that I with physical exertion walking distances etc. he was having some burning retrosternal chest pain. The symptoms were always relieved with rest but over the course of the last 2 months the symptoms have slowly progressed where less activity is taking to provoke the symptoms and they are lasting longer into recovery. Yesterday he was actually having some rest pain he says he became very concerned about this and appropriately came to emergency for evaluation early this morning. His electrocardiogram shows sinus rhythm with a right bundle branch block but without any significant ST segment depression or elevation. His troponin level however is significantly elevated prompting request to see him in the emergency room. Upon arrival he appears to be comfortable and not offering any other complaints. I know this gentleman from the past he was found to have a patent foramen ovale which is symptomatic with symptoms of TIA and in 2019 he was referred to structural interventionalist at [place] where he underwent percutaneous closure of his PFO. He did have some intermittent symptoms of sharp atypical sounding chest pain for which he had a stress echo done last year as an outpatient which was a negative study. Review of Systems Constitutional: Constitutional: Reports no additional constitutional complaints Eyes: Eyes: Reports no additional eye complaints ENT: Reports system reviewed and no additional complaints, except as documented Cardiovascular: Cardiovascular: Reports as per HPI and Reports chest pain Respiratory: Respiratory: Reports no additional respiratory complaints Gastrointestinal: Gastrointestinal: Reports no additional gastrointestinal complaints Musculoskeletal: Musculoskeletal: Reports no additional musculoskeletal complaints Integumentary/Breasts: Skin/Breast: Reports system reviewed and no additional complaints, except as docu Neurologic: Comments: Alert and oriented x3 [facility] Past Medical History Medical History Colon polyp CVA (cerebrovascular accident) GI bleed Hernia Hyperlipidemia Impingement syndrome, shoulder, 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, bilateral Patent foramen ovale PFO (patent foramen ovale) Rectal bleed Rotator cuff tear Traumatic tear of left rotator cuff Surgical History Surgical History H/O hernia repair H/O wrist surgery right History of knee surgery rotbilateral History of rotator cuff surgery S/P patent foramen ovale closure Family History Family History Father Hypertension Family history of elevated blood lipids Family history of coronary artery disease Mother Family history of elevated blood lipids Social History Social History Smoking status: Never smoker Alcohol intake: never Substance use type: does not use Do You Feel Safe in your Home?: Yes Lack of Transportation: No Lack of Food: Never True Current Housing: I Have Housing Concerned About Future Housing: No Difficulty Paying Gas/Electric Bills: No Difficulty Paying for Meds: No Currently Unemployed: No Education: Bachelor's Degree Difficulty w/ Childcare or Family Care: No Living arrangements: with family Spiritual care co
[2024-06-25 11:17] LABS: Basophils Percent Auto 0.6 % (0.2-1.2); Eosinophils Absolute Auto 0.1 K/mm3 (0-0.3); Eosinophils Percent Auto 2.1 % (0-4.4); Hematocrit 42.4 % (42.0-52.0); Hemoglobin 14.4 g/dL (14.0-18.0); Immature Granulocyte Absolute 0.01 K/mm3 (0.00-0.031); Immature Granulocyte Percent A 0.2 % (0-0.5); Lymphocytes Absolute Auto 1.89 K/mm3 (0.9-3.2); Lymphocytes Percent Auto 30.1 % (18.3-44.2); Mean Corpuscular Hemoglobin 29.7 pg (26-34); Mean Corpuscular Volume 87.4 fl (80-100); Mean Platelet Volume 8.7 fl (7.4-10.4); Monocytes Absolute Auto 0.7 K/mm3 (0.1-0.6); Monocytes Percent Auto 10.7 % (2.6-8.5); Neutrophils Absolute Auto 3.5 K/mm3 (1.3-6.7); Neutrophils Percent Auto 56.3 % (45.5-73.1); Platelet Count Result 254 k/mm3 (150-375); Red Blood Count 4.85 M/mm3 (4.6-6.20); Red Cell Distribution Width 13.1 % (11.5-14.5); White Blood Count 6.3 K/mm3 (4.5-10.0)
--- NOTE | 2024-06-25 11:21 | WPDMODSED ---
Moderate Sedation Note-Pt Data Patient Data Diagnosis: acute coronary syndrome / non ST-elevation [place] Present Complaint: 2 month history of typical exertional angina recently accelerating with rest pain Procedure to be performed/Plan: left heart catheterization Allergies Allergy/AdvReac Type Severity Reaction Status Date / Time No Known Allergies Allergy Verified 05/30/24 13:18 Home Medications Medication Instructions Recorded Confirmed Type aspirin 81 mg chewable tablet 81 mg PO DAILY 09/27/19 03/28/24 History [id number] C-Mn 500 2 cap PO DAILY 08/25/20 03/28/24 History mg-400 mg capsule (Glucosamine-Chondroitin Max St) sildenafil (pulm.hypertension) 20 20 mg PO ONCE PRN sexual activity 07/22/23 03/28/24 Rx mg tablet #100 tabs ezetimibe 10 mg-simvastatin 10 mg 1 tablet PO DAILY #90 tabs 01/18/24 03/28/24 Rx tablet metoprolol succinate 25 mg 25 mg PO DAILY #90 tabs 02/22/24 03/28/24 Rx tablet,extended release 24 hr Current Medications: Active Medications Heparin Sodium (Porcine) (Heparin Sodium 5,000 Units/Ml Vial) 4,000 units IV PUSH PRN PRN PRN Reason: aPTT less than 55 seconds Heparin Sodium (Porcine) (Heparin Sodium 5,000 Units/Ml Vial) 3,500 units IV PUSH PRN PRN PRN Reason: aPTT 55 - 70 seconds Heparin Sodium/Dextrose (Heparin Sodium/D5w 100 Units/Ml) 25,000 units in 250 mls @ 10 mls/hr IV CONT .Q24H KANDICE; Protocol Last Admin: 06/25/24 10:33 Dose: 1,000 units/hr, 10 mls/hr Sedation/Anesthesia: No previous sedation/anesthesia problems (including family history). 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, bilateral Patent foramen ovale PFO (patent foramen ovale) Rectal bleed Rotator cuff tear Traumatic tear of left rotator cuff Surgical History Surgical History H/O hernia repair H/O wrist surgery right History of knee surgery rotbilateral History of rotator cuff surgery S/P patent foramen ovale closure Family History Family History Father Hypertension Family history of elevated blood lipids Family history of coronary artery disease Mother Family history of elevated blood lipids Social History Social History Smoking status: Never smoker Alcohol intake: never Substance use type: does not use Do You Feel Safe in your Home?: Yes Lack of Transportation: No Lack of Food: Never True Current Housing: I Have Housing Concerned About Future Housing: No Difficulty Paying Gas/Electric Bills: No Difficulty Paying for Meds: No Currently Unemployed: No Education: Bachelor's Degree Difficulty w/ Childcare or Family Care: No Living arrangements: with family Spiritual care concerns: No Mod Sed Physical Exam Physical Exam Pre Procedural Exam: Normal: Appearance, Neck, Throat, Airway, Lungs, Heart Size, Heart Rate, Heart Rhythm, Neuro Exam and Extremities Hours since solid foods: 12 Hours since liquid intake: 12 Mallampati Classification: class II Internal Medicine - PN: Obj Da Vital Signs Vital Signs: Vital Signs - 24 hr 06/25/24 08:03 06/25/24 08:03 06/25/24 08:15 Temperature 36.3 C L 36.3 C L Pulse Rate 78 65 Respiratory Rate 13 11 L Blood Pressure 170/102 H 152/94 H Pulse Oximetry 98 97 97 Oxygen Delivery Room Air Room Air 06/25/24 08:16 06/25/24 08:56 06/25/24 10:39 Temperature Pulse Rate 68 66 62 Respiratory Rate 15 13 14 Blood Pressure 152/94 H 154/87 H 153/99 H Pulse Oximetry 96 93 97 Oxygen Delivery Meds/Results Medications: Active Medications Generic Name Dose Route Star
[2024-06-25 11:29] LABS: INR 1.1; Prothrombin Time 14.5 Seconds (11.1-14.7)
[2024-06-25 11:32] LABS: Partial Thromboplastin Time 117.3 Seconds (22.3-36.8)
--- NOTE | 2024-06-25 11:54 | PM.IMHP ---
H&P: HPI History of Present Illness Date/Time: 06/25/24 11:54 Chief Complaint: Chest pain Narrative: This is a 68-year-old male with a significant past medical history of hypertension, hyperlipidemia, GI bleed, PFO with history CVA-no residual and s/p repai, who presented to the hospital with complaints of chest pain that has evolved over the last month duration. Patient stated that his chest pain was with exertion and describes it as a burning sensation in the anterior central portion of the chest and the sternum. He said that it usually subsides after 15 minutes of rest however the last month he has been having exertional pain that does not subside even at rest. He did have a normal stress test 1 year ago. Workup in the hospital included a chest x-ray which was negative for any acute cardiopulmonary disease. Chest/abdomen/pelvis CTA did not show any significant abnormalities. Initial labs shown a normal white blood cell count of 6.3, PTT 117.3, AST 102, troponin 10.7, lipase was 110. EKG showed sinus rhythm with right bundle branch block, anterior lateral myocardial infarction of indeterminate age with a rate of 68, QTC 475. Patient was given a dose of aspirin 324 mg p.o., heparin bolus and drip, 500 mL bolus of normal saline while in the ED. Cardiology was consulted and patient was taken to the quality assurance qa lab technician. He was found to have an LAD that was 99% blocked, 90% distal left main stenosis and 70-80% stenosis in the 1st portion of the RCA. His ejection fraction is noted to be 45%. He was transferred to the ICU on a balloon pump in IV heparin. Plan is for patient to transfer to [place] for CABG and will be going to room 8212 in the surgical ICU. Patient denies any fever, chills, nausea, vomiting, diarrhea, abdominal pain, chest pain, shortness a breath. He does report a headache. Review of Systems Review of Systems: All systems reviewed & are unremarkable except as noted in HPI and below Constitutional: Constitutional: Reports as per HPI and Reports no additional constitutional complaints Eyes: Eyes: Reports as per HPI and Reports no additional eye complaints ENT: Reports system reviewed and no additional complaints, except as documented and Reports as per HPI Cardiovascular: Cardiovascular: Reports as per HPI and Reports no additional cardiovascular complaints Respiratory: Respiratory: Reports as per HPI and Reports no additional respiratory complaints Gastrointestinal: Gastrointestinal: Reports as per HPI and Reports no additional gastrointestinal complaints Genitourinary: Genitourinary: Reports no additional male genitourinary complaints and Reports as per HPI Musculoskeletal: Musculoskeletal: Reports no additional musculoskeletal complaints and Reports as per HPI Integumentary/Breasts: Skin/Breast: Reports system reviewed and no additional complaints, except as docu and Reports as per HPI Neurologic: Reports system reviewed and no additional complaints, except as documented and Reports as per HPI Psychiatric: Psychiatric: Reports no additional psychiatric complaints and Reports as per HPI [facility] Past Medical History Medical History Colon polyp CVA (cerebrovascular accident) GI bleed Hernia Hyperlipidemia Hypertension Impingement syndrome, shoulder, 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 Non-ST elevation [place] (NSTEMI) Osteoarthritis of hands, bilateral Patent foramen ovale PFO (patent foramen ovale) Rectal bleed Rotator cuff tear Traumatic tear of left rotator cuff Surgical History Surgical History H/O hernia repair H/O wrist surgery right History of knee surgery rotbilateral History of rotator cuff surgery S/P patent foramen ovale closure Family History Family History Father Hypertension Family history of elevated blood lipids Family history of coronary art
--- NOTE | 2024-06-25 13:16 | WPDCARDPROC ---
Cardiac Cath Procedure Note Date of procedure:: 06/25/24 Performing physician:: Christopher Hernández MD Indication:: this is a 68-year-old man with previous PFO closure but no previous history of ischemic heart disease who presents with accelerating angina for about 2 months culminating in chest pain at rest for which he came to the emergency room today. Troponin is elevated. electrocardiogram shows sinus rhythm with right bundle branch block be chronic. Because of the elevated troponin angiography has been recommended Brief clinical history:: as above Procedure Procedure performed:: coronary angiography left ventriculography placement of intra-aortic balloon pump. Sedation/Medication given:: Fentanyl 50 mg Versed 2 mg case start time 12:31 p.m. case end time 1:09 p.m. sedation provided by Doreen García RN, trained observer Access site:: right femoral artery Estimated blood loss:: 25 cc Procedure note:: patient was brought to the catheterization lab in the postabsorptive state where the right femoral triangle was prepared and draped in the normal fashion. Anesthesia was provided with 1% lidocaine infiltrated locally after this a 5 Malaysian sheath was placed into the right femoral artery and left heart catheterization was carried out. I used a 5 Malaysian angled pigtail catheter to measure left-sided hemodynamics and poor perform a left ventriculogram in the 30 degree SHEA projection. I then used a standard 5 Malaysian JR4 catheter to engage and inject the right coronary artery. Following this a 5 Malaysian FL4 catheter was used to engage and inject the left coronary artery in multiple projections. After this the cineangiograms were reviewed and the decision was made to place an intra-aortic balloon pump in heparinized the patient because of critical left main disease as will be described below. the 5 Malaysian sheath was exchanged over the guidewire for the balloon pump sheath after this the intra-aortic balloon pump was placed into the central aortic circulation to the level of the descending thoracic aorta and turned on at one-to-one counter pulsation. The balloon pump sheath and the balloon pump were sutured into position using 2-0 silk ties. Procedure was well tolerated and uncomplicated there was no evidence of any procedural complications and he left the laborer cook house to the ICU in stable condition with no evidence of groin hematoma. Findings:: Hemodynamics: Central aortic pressure is 170 over 92 left ventricle 1 68/0 end-diastolic 16 there is no gradient on pullback across the aortic valve. Left ventricle: The LV is of normal size the anterior wall is moderately hypodynamic. The remainder of the LV contracts well the global ejection fraction is 45%. The left coronary artery is a diffusely calcified artery that is noted prior to any angiographic injections. The left main coronary artery is a moderate caliber vessel which has high-grade 90% stenosis in the distal segment as it bifurcates into the LAD and circumflex. this is an eccentric lesion that in some views appears also to be hazy in appearance. The LAD is a medium caliber vessel extending down to the apex. The proximal LAD itself has mild luminal irregularities in the mid LAD there is a 99% stenosis with with LEONIDAS 2 flow distal to that. Distal to this subtotal lesion the LAD appears to be free of significant disease. The circumflex is a moderate caliber artery with moderate 70-80% ostial stenosis extending from the left main. The remainder of the circumflex has mild luminal irregularity there is a 1st marginal branch that is much medium to large caliber and a more distal marginal branch that is of large caliber. The right coronary artery is a large caliber vessel it is dominant to the posterior circulation the right coronary is moderately calcified and there is a 70-80% stenosis in the proximal portion of the RCA where it is also moderately calci
--- NOTE | 2024-06-25 13:52 | WPDCNINT ---
Assessment and Plan Assessment and plan (1) Non-ST elevation [place] (NSTEMI): Code(s): I21.4 - Non-ST elevation (NSTEMI) myocardial infarction Status: Acute Assessment and Plan: Status post cardiac catheterization which showed Acute coronary syndrome / non ST elevation [place] with culprit lesion being a subtotal stenosis in the mid LAD of 99% there is also 90% distal left main stenosis and 70-80% stenosis in the 1st portion of the right coronary artery. Anterior hypokinesia with ejection fraction of about 45% with subtotal stenosis of the left anterior descending as detailed above is the culprit for this presentation. IABP has been placed and patient is going to be transferred for CABG evaluation. Cardiology Services arranging the transfer Telemetry monitoring Heparin infusion Aspirin, statin, beta-halle and ARB (2) Hyperlipidemia: Code(s): E78.5 - Hyperlipidemia, unspecified Status: Chronic Assessment and Plan: Continue statin (3) PFO (patent foramen ovale): Code(s): Q21.1 - Atrial septal defect Status: Chronic Assessment and Plan: Status post repair (4) Hypertension: Code(s): I10 - Essential (primary) hypertension Status: Chronic Assessment and Plan: Patient be started on beta-halle and ARB Monitor and treat accordingly Plan DVT prophylaxis -Heparin infusion Nutrition - npo Code Status - Full Code Family updated at bedside Total Critical Care Time -30 minutes Due to a high probability of clinically significant, life threatening deterioration, the patient required my highest level of preparedness to intervene emergently and I personally spent this critical care time directly and personally managing the patient. This critical care time included obtaining a history; examining the patient; pulse oximetry; ordering and review of studies; arranging urgent treatment with development of a management plan; evaluation of patient's response to treatment; frequent reassessment; and discussions with other providers. It was exclusive of separately billable procedures and treating other patients and teaching time. Please see Assessment and Plan section and the rest of the note for further information on patient assessment and treatment Rn Registry Consult Note Consult date: 06/25/24 Reason for consult: NSTEMI HPI: Tushar Chaves is a 68 year old male with significant past medical history of hypertension, hyperlipidemia, GI bleed, PFO with history CVA-no residual and s/p repair, who presented to the [facility] with complaints of chest pain. Patient states that from last couple months he has been having exertional chest pain which comes and whenever he rides his bike and goes away after 10 15 minutes. Over last 2-3 days the pain has become more frequent and severe and not resolving with rest. Last night pain came while he was resting. Pain is centrally located in the chest, last night radiated to his both arms. 8/10 severe, burning in quality, associated with shortness of breath and sweating. No nausea dizziness lightheadedness or loss of consciousness. All other systems were reviewed and were negative Patient denies any pain at this time. He did have a normal stress test 1 year ago. Workup in the hospital included a chest x-ray which was negative for any acute cardiopulmonary disease. Chest/abdomen/pelvis CTA did not show any significant abnormalities. Initial labs shown a normal white blood cell count of 6.3, PTT 117.3, AST 102, troponin 10.7, lipase was 110. EKG showed sinus rhythm with right bundle branch block, anterior lateral myocardial infarction of indeterminate age with a rate of 68, QTC 475. Patient was given a dose of aspirin 324 mg p.o., heparin bolus and drip, 500 mL bolus of normal saline while in the ED. cardiology was consulted and patient was taken to cardiac catheterization lab Cardiac catheterization showed Conclusion:: 1. Right
[2024-06-25] MEDS: SODIUM CHLORIDE 0.9% IV 1,000 ML 125 ML IV CONT (14:21)
[2024-06-25] MEDS: METOPROLOL TARTRATE 25 MG TABLET PO (15:03)
--- NOTE | 2024-06-25 15:23 | PC.NURSE ---
Report given to CARMELITA Drew at [facility], Surgical ICU. Patient to be transferred via helicopter to Room 8212 Bed 1.
--- NOTE | 2024-06-25 15:58 | PM.TDS ---
Transfer Discharge Sum: Prov Provider Date of admission: 06/25/24 13:14 Primary care physician: Christopher Rodriguez MD Admitting clinician: Christopher Hernándze MD Consults: 06/25/24 Consult to Physician Routine Comment: Consulting Provider: Christopher Hernández Reason for consultation: NSTEMI Has provider been notified: No DS: Admitting Diagnosis Discharge Date 06/25/24 Admitting Diagnosis NSTEMI PFO Hyperlipidemia Hypertension Transfer Discharge Sum: Med Medications Active and Home Medications: Home Medications aspirin 81 mg chewable tablet 81 mg PO DAILY 09/27/19 [History Confirmed 06/25/24] [id number] C-Mn 500 mg-400 mg capsule (Glucosamine-Chondroitin Max St) 2 cap PO DAILY 08/25/20 [History Confirmed 06/25/24] sildenafil (pulm.hypertension) 20 mg tablet 20 mg PO ONCE PRN sexual activity #100 tabs 07/22/23 [Rx Confirmed 06/25/24] ezetimibe 10 mg-simvastatin 10 mg tablet 1 tablet PO DAILY #90 tabs 01/18/24 [Rx Confirmed 06/25/24] Active Medications Acetaminophen (Acetaminophen 325 Mg Tablet) 650 mg PO Q4H PRN PRN Reason: Mild Pain (1-3) or Fever Hydrocodone Bitart/Acetaminophen (Hydrocodone/Acetaminophen (*Crx) 5-325 Mg Tablet) 1 tab PO Q4H PRN PRN Reason: Moderate Pain (4-6) Aspirin (Aspirin 325 Mg Enteric Tablet) 325 mg PO QAM KANDICE Heparin Sodium (Porcine) (Heparin Sodium 5,000 Units/Ml Vial) 4,000 units IV PUSH PRN PRN PRN Reason: aPTT less than 55 seconds Heparin Sodium (Porcine) (Heparin Sodium 5,000 Units/Ml Vial) 3,500 units IV PUSH PRN PRN PRN Reason: aPTT 55 - 70 seconds Heparin Sodium/Dextrose (Heparin Sodium/D5w 100 Units/Ml) 25,000 units in 250 mls @ 10 mls/hr IV CONT .Q24H [facility]; Protocol Last Admin: 06/25/24 14:21 Dose: 1,000 units/hr, 10 mls/hr Sodium Chloride (Normal Saline Iv) 1,000 mls @ 125 mls/hr IV CONT .Q8H ONE Stop: 06/25/24 21:13 Last Admin: 06/25/24 14:21 Dose: 125 mls/hr Metoprolol Tartrate (Metoprolol Tartrate 25 Mg Tablet) 25 mg PO Q12HR [facility] Last Admin: 06/25/24 15:03 Dose: 25 mg Morphine Sulfate (Morphine Sulfate (*Crx) 2 Mg/Ml Inj) 2 mg IV PUSH Q4H PRN PRN Reason: Pain Rated 7-10 Ondansetron HCl (Ondansetron Inj 4 Mg/2 Ml Vial) 4 mg IV PUSH Q6H PRN PRN Reason: Nausea And Vomiting Rosuvastatin Calcium (Rosuvastatin 20 Mg Tablet) 20 mg PO QAM [facility] Transfer Discharge Sum: Hosp Hospital Course Hospital course: Tushar Chaves is a 68 year old male with a significant past medical history of hypertension, hyperlipidemia, GI bleed, PFO with history CVA-no residual and s/p repair, who presented to the hospital with complaints of chest pain that has evolved over the last month duration. Patient stated that his chest pain was with exertion and describes it as a burning sensation in the anterior central portion of the chest and the sternum. He said that it usually subsides after 15 minutes of rest however the last few days he has been having exertional pain that does not subside even at rest. He did have a normal stress test 1 year ago. Workup in the hospital included a chest x-ray which was negative for any acute cardiopulmonary disease. Chest/abdomen/pelvis CTA did not show any significant abnormalities. Initial labs shown a normal white blood cell count of 6.3, PTT 117.3, AST 102, troponin 10.7, lipase was 110. EKG showed sinus rhythm with right bundle branch block, anterior lateral myocardial infarction of indeterminate age with a rate of 68, QTC 475. Patient was given a dose of aspirin 324 mg p.o., heparin bolus and drip, 500 mL bolus of normal saline while in the ED. Cardiology was consulted and patient was taken to the laborer pole crew. He was found to have an LAD that was 99% blocked, 90% distal left main stenosis and 70-80% stenosis in the 1st portion of the RCA. His ejection fraction is noted to be 45%. He was transferred to the ICU on a balloon pump in IV heparin. Plan is for patient to transfer to [place] for CABG and will be going
== END 2024-06-25 17:15 | disposition short-term general hospital (02) | DRG 272 ==
LOC: ANHED 10:53 → ANHICU 06-26 16:43
PROVIDERS: Admitting Provider Specialist; Emergency Provider Student in an Organized Health Care Education/Training Program; PCP Family Medicine; Visit Provider Nurse Practitioner Acute Care
PROC: 4A023N7 Measurement of Cardiac Sampling and Pressure, Left Heart, Percutaneous Approach (ICD-10-PCS; CPT 93452; principal; 2024-06-25 11:15)
PROC: 5A02210 Assistance with Cardiac Output using Balloon Pump, Continuous (ICD-10-PCS; 2024-06-25 11:15)
DX: I21.4 Non-ST elevation (NSTEMI) myocardial infarction (principal); I25.10 Atherosclerotic heart disease of native coronary artery without angina pectoris; Z87.74 Personal history of (corrected) congenital malformations of heart and circulatory system; I10 Essential (primary) hypertension; E78.5 Hyperlipidemia, unspecified; Z86.73 Personal history of transient ischemic attack (TIA), and cerebral infarction without residual deficits
CPT/HCPCS: 33967; 36415; 71046; 71275; 74174; 80053; 83690; 84484; 85025; 85610; 85730; 93005; 93458; 96365; 96366; 99285; A9270; C1887; C1894; J1644; J2250; J3010; J7030; J7040; Q9967

== ENCOUNTER 2024-07-09 11:11 | Outpatient (CLI) | payer MEDICARE, SELFPAY ==
[2024-07-09 14:52] LABS: Basophils Absolute Auto 0.1 K/mm3 (0.0-0.1); Basophils Percent Auto 0.7 % (0.2-1.2); Eosinophils Absolute Auto 0.1 K/mm3 (0-0.3); Eosinophils Percent Auto 0.5 % (0-4.4); Hematocrit 34.4 % (42.0-52.0); Immature Granulocyte Absolute 0.14 K/mm3 (0.00-0.031); Immature Granulocyte Percent A 1.3 % (0-0.5); Lymphocytes Absolute Auto 1.43 K/mm3 (0.9-3.2); Lymphocytes Percent Auto 13.2 % (18.3-44.2); Mean Corpuscular Hemoglobin 28.9 pg (26-34); Mean Corpuscular Volume 90.5 fl (80-100); Mean Platelet Volume 8.4 fl (7.4-10.4); Monocytes Percent Auto 8.9 % (2.6-8.5); Neutrophils Absolute Auto 8.2 K/mm3 (1.3-6.7); Neutrophils Percent Auto 75.4 % (45.5-73.1); Platelet Count Result 839 k/mm3 (150-375); Red Cell Distribution Width 13.7 % (11.5-14.5); White Blood Count 10.8 K/mm3 (4.5-10.0)
[2024-07-09 15:13] LABS: Alanine Aminotransferase 27 U/L (6-50); Albumin Level 4.3 g/dL (3.5-5.1); Alkaline Phosphatase 145 U/L (38-126); Anion Gap 15 mmol/L (4-12); Aspartate Amino Transferase 98 U/L (17-59); Bilirubin,Total 0.9 mg/dL (0.2-1.3); Blood Urea Nitrogen 18 mg/dL (9-20); Calcium 9.4 mg/dL (8.4-10.2); Carbon Dioxide 21 mmol/L (22-30); Chloride 100 mmol/L (98-107); Estimated Glomerular Filt Rate > 60; Glucose 87 mg/dL (65-110); Potassium 4.2 mmol/L (3.4-5.0); Sodium 136 mmol/L (137-145)
== END 2024-07-09 11:12 | disposition home or self-care (01) ==
PROVIDERS: PCP Family Medicine; Visit Provider Family Medicine
DX: D64.9 Anemia, unspecified (principal)
CPT/HCPCS: 36415; 80053; 85025

== ENCOUNTER 2024-07-10 13:25 | Outpatient (CLI) | payer MEDICARE, SELFPAY ==
[2024-07-10 18:57] LABS: Basophils Absolute Auto 0.1 K/mm3 (0.0-0.1); Basophils Percent Auto 0.8 % (0.2-1.2); Eosinophils Absolute Auto 0.1 K/mm3 (0-0.3); Eosinophils Percent Auto 0.9 % (0-4.4); Hematocrit 33.4 % (42.0-52.0); Hemoglobin 10.7 g/dL (14.0-18.0); Immature Granulocyte Absolute 0.07 K/mm3 (0.00-0.031); Immature Granulocyte Percent A 0.9 % (0-0.5); Lymphocytes Percent Auto 18.8 % (18.3-44.2); Mean Corpuscular Hemoglobin 29.5 pg (26-34); Mean Platelet Volume 8.3 fl (7.4-10.4); Monocytes Absolute Auto 0.9 K/mm3 (0.1-0.6); Monocytes Percent Auto 10.9 % (2.6-8.5); Neutrophils Absolute Auto 5.4 K/mm3 (1.3-6.7); Neutrophils Percent Auto 67.7 % (45.5-73.1); Platelet Count Result 781 k/mm3 (150-375); Red Blood Count 3.63 M/mm3 (4.6-6.20); Red Cell Distribution Width 13.7 % (11.5-14.5)
== END 2024-07-10 13:26 | disposition home or self-care (01) ==
LOC: ANHGOSHLAB 13:27
PROVIDERS: PCP Family Medicine; Visit Provider Family Medicine
DX: D75.839 Thrombocytosis, unspecified (principal)
CPT/HCPCS: 36415; 85025

== ENCOUNTER 2024-07-25 09:23 | Outpatient (CLI) | payer MEDICARE, SELFPAY ==
[2024-07-25 14:11] LABS: Basophils Absolute Auto 0.1 K/mm3 (0.0-0.1); Basophils Percent Auto 1.2 % (0.2-1.2); Eosinophils Absolute Auto 0.1 K/mm3 (0-0.3); Eosinophils Percent Auto 2.3 % (0-4.4); Hematocrit 38.8 % (42.0-52.0); Hemoglobin 12.1 g/dL (14.0-18.0); Immature Granulocyte Absolute 0.01 K/mm3 (0.00-0.031); Immature Granulocyte Percent A 0.2 % (0-0.5); Lymphocytes Absolute Auto 1.22 K/mm3 (0.9-3.2); Lymphocytes Percent Auto 25.4 % (18.3-44.2); Mean Corpuscular HGB Conc 31.2 g/dl (32-36); Mean Corpuscular Hemoglobin 27.6 pg (26-34); Mean Corpuscular Volume 88.6 fl (80-100); Mean Platelet Volume 8.9 fl (7.4-10.4); Monocytes Absolute Auto 0.4 K/mm3 (0.1-0.6); Monocytes Percent Auto 8.9 % (2.6-8.5); Platelet Count Result 387 k/mm3 (150-375); Red Blood Count 4.38 M/mm3 (4.6-6.20); Red Cell Distribution Width 13.2 % (11.5-14.5); White Blood Count 4.8 K/mm3 (4.5-10.0)
[2024-07-25 14:24] LABS: Alanine Aminotransferase 19 U/L (6-50); Albumin Level 4.2 g/dL (3.5-5.1); Alkaline Phosphatase 140 U/L (38-126); Anion Gap 12 mmol/L (4-12); Aspartate Amino Transferase 65 U/L (17-59); Bilirubin,Total 0.8 mg/dL (0.2-1.3); Blood Urea Nitrogen 10 mg/dL (9-20); Calcium 8.9 mg/dL (8.4-10.2); Carbon Dioxide 20 mmol/L (22-30); Chloride 104 mmol/L (98-107); Cholesterol 122 mg/dL (0-200); Estimated Glomerular Filt Rate > 60; Glucose 143 mg/dL (65-110); HDL Direct 33 mg/dL; Potassium 3.9 mmol/L (3.4-5.0); Sodium 136 mmol/L (137-145); Triglycerides 96 mg/dL (<150)
[2024-07-25 14:36] LABS: LDL Cholesterol Direct 57 mg/dL
== END 2024-07-25 09:24 | disposition home or self-care (01) ==
LOC: ANHGOSHLAB 09:26
PROVIDERS: PCP Family Medicine; Visit Provider Family Medicine
DX: R74.01 Elevation of levels of liver transaminase levels (principal); E78.5 Hyperlipidemia, unspecified; D75.839 Thrombocytosis, unspecified; D64.9 Anemia, unspecified
CPT/HCPCS: 36415; 80053; 80061; 85025

== ENCOUNTER 2024-12-12 07:00 | Outpatient (RCR) | payer MEDICARE, SELFPAY | END 2024-12-12 08:30 | disposition home or self-care (01) | LOC: ANHCPREHAB 07:00 | PROVIDERS: PCP Family Medicine; Visit Provider Specialist | DX: Z95.1 Presence of aortocoronary bypass graft (principal); Z95.2 Presence of prosthetic heart valve | CPT/HCPCS: 93798 ==

== ENCOUNTER 2025-03-06 10:02 | Outpatient (CLI) | payer MEDICARE, SELFPAY ==
--- OUTSIDE RECORDS SUMMARY | 2025-03-06 10:45 | XMS_ITS | Referral Summary ---
Author Organization [facility] al Address [address] [place] [address] Care Team Providers Care Talent Specialist Name Role Phone Christopher Rodriguez MD Primary Care Provider [phone] Lamberto Castillo MD Unavailable [phone] Miscellaneous, Not In File Unavailable Unava ilable Allergies No known active allergies Medications acetaminophen 500 mg capsule Take 2 capsules (1,000 mg total) by mouth every 6 (six) hours as needed for pain 07/03/2024 Active clopidogreL (PLAVIX) 75 mg tablet Take 1 tablet (75 mg total) by mouth daily 90 tablet 2 08/24/2024 08/24/20 Active atorvastatin (LIPITOR) 80 mg tablet Take 1 tablet (80 mg total) by mouth nightly 90 tablet 2 08/24/2024 08/24/20 Active Active Problems Problem Noted Date Diagnosed Date Hx of CABG 08/24/2024 Delirium 07/01/2024 Assessment & Plan (07/01/2024 2:14 PM CDT): Delirium precautions Sleep hygiene Stopped oxycodone ABLA (acute blood loss anemia) 06/27/2024 Assessment & Plan (07/01/2024 2:12 PM CDT): - low hemoglobin level post cardiac surgery - Hemoglobin level 7.6 - daily CBC - consider blood transfusion if hgb < 7 and hemodynamically unstable Acute post-operative pain 06/27/2024 Assessment & Plan (07/01/2024 2:13 PM CDT): - continue scheduled APAP - stopped PRN oxycodone - changed robaxin to PRN - PT/OT NSTEMI (non-ST elevated myocardial infarction) 0 06/26/2024 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 IABP removal - all CT removed - EPW capped and insulated - cut EPW at DC - aggressive pulmonary toilet, IS, OOBC, acapella - Bowel regimen - PT/OT - monitor on telemetry - daily CBC and BMP Patent foramen ovale 06/19/2019 Cerebrovascular accident (CVA) 06/19/2019 Right bundle-branch block 06/19/2019 Resolved Problems Problem Noted Date Diagnosed Date Resolved Date Pneumothorax, postoperative 06/28/2024 07/01/2024 Assessment & Plan (07/01/2024 2:12 PM CDT): - chest xray single view 06/26 showed moderate right apical pneumothorax - IP consulted- R PCT placed 06/28 - CT to wall suction - daily xray - oxygen PRN keeping saturation > 92% - no airleak on exam this am- placed on waterseal - CXR 2V 06/29 showed stable right apical pneumothorax -R PCT clamped this am - repeat CXR this afternoon- if pneumo stable will remove -R PCT removed 06/29- pneumothorax resolved on post pull CXR Social History Tobacco Use Types Packs/Day Years Used Date Smoking Tobacco: Never Smokeless Tobacco: Never Alcohol Use Standard Drinks/Week Comments Never 0 (1 standard drink = 0.6 oz pur e alcohol) OASIS D0700: Social Isolation Answer Da te Recorded Frequency of experiencing loneliness or isolatio n Never 07/30/2024 OASIS A1250: Transportation Answer Date Recorded Lack of Transportation (Medical) No 07/30/2024 Lack of Transportation (Non-Medical) No 07/30/2024 Patient Unable or Declines to Respond No 07/30/2024 OASIS B1300: Health Literacy Answer Lobo e Recorded Frequency of needing help to read materials from doctor or pharmacy Sometimes 07/30/2024 Personal Safety Answer Date Recorded Have you ever been in or are you currently in a harmful physical or emotional relationship or is someone making you feel afraid or unsafe? 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 Gender Identity Male 04/09/2020 1:01 PM CDT Sexual Orientation Straight 04/09/2020 1: 01 PM CDT Last Filed Vital Signs Vital Sign Reading Time Taken Comments Blood Pressure 112/72 08/24/2024 9:27 AM CDT Pulse 90 08/24/2024 9:27 AM CDT Temperature 36.7 C (98 F) 07/30/2024 10:19 AM CDT Respiratory Rate 18 07/30/2024 10:19 AM CDT Oxygen Saturation 98% 08/24/2024 9:27 AM CDT Inhaled Oxygen Concentration - - Weight 75.8 kg (167 lb) 08/24/2024 9:27 AM CDT Height 175.3 cm (5' 9 ) 08/24/2024 9:27 AM CDT Body Mass Index 24.66 08/24/2024 9:27 AM CDT Plan of Treatment Not on file Medical Devices Implanted Type Area Music Engineer Device Identifier Shelf Expiration Date Model / Serial / Lot Camarena Vascular 9-Pfo-025 Amplatzer 25mm 18mm 2 Disk Self Expandable Delivery System Patent - [id number] Implanted:Qty: 1 on 08/03/2019 by Aamir Fernandez MD PhD at [facility] [employer] 04/29/2024 9-PFO-025 / / [id number] [employer] Suture Armstrong Cor Knot Pre Loaded Fastener Device Micro Titanium 0 88511 - [id number] Implanted:Qty: 4 on 06/26/2024 by Lamberto Castillo MD at [facility] N/A: Heart [employer] [id number] 03/30/2026 [id number] / / [id number] Camarena Vascular System Closure Repair Femoral Artery Suture Mediated Perclose Prostyle 19784-27 - [id number] Implanted:Qty: 1 on 06/26/2024 by Lamberto Castillo MD at [facility] Right: Femoral C[employer]rena V[employer] [id number] 02/27/2025 88227-77 / / [id number] [employer] Device Closure Fibertape Sternal Cerclage Blunt Needle Ar-7289 - [id number] Implanted:Qty: 3 on 06/26/2024 by Lamberto Castillo MD at [facility] N/A: Chest [employer] [id number] AR-7289 / / [employer] Plate Bone Low Profile 6 Hole H Shape Sternum Ti 115.102.06 - [id number] Implanted:Qty: 2 on 06/26/2024 by Don Vora MD at [facility] N/A: Chest [employer] 115.102.0 6 / / [employer] Plate Bone Low Profile 10 Hole [place] Sternum Ti 115.106.10 - [id number] Implanted:Qty: 1 on 06/26/2024 by Don Vora MD at [facility] N/A: Chest [employer] 115.106.1 0 / / [employer] Screw Bone Slf Drl Full Thread Locking 3.5x14mm Ti 100.035.14 - [id number] Implanted:Qty: 6 on 06/26/2024 by Don Vora MD at [facility] N/A: Chest [employer] 100.035.1 4 / / [employer] Screw Bone Slf Drl Full Thread Locking 3.5x16mm Ti 100.035.16 - [id number] Implanted:Qty: 6 on 06/26/2024 by Don Vora MD at [facility] N/A: Chest [employer] 100.035.1 6 / / [employer] Screw Bone Slf Drl Full Thread Locking 3.5x18mm Ti 100.035.18 - [id number] Implanted:Qty: 10 on 06/26/2024 by Don Vora MD at [facility] N/A: Chest [employer] 100.035.1 8 / / Insurance MEDICARE MEDICARE [employer] [facility] MEDICARE Advance Directives For more information, please contact: [phone] * Full Code (Latest Code Status on File) Date Activated Date Inactivated Comments 06/25/2024 8:11 PM 07/03/2024 3:37 PM * Full Code Date Activated Date Inactivated Comments 08/03/2019 9:14 AM 08/03/2019 8:19 PM Care Teams Talent Specialist Relationship Specialty Start Date End Date Christopher Rodriguez MD PCP - General Family Medicine 11/01/19 Lamberto Castillo MD [address] [facility] [address] [place] [address] Surgeon Cardiothoracic Surgery 07/03/24 Miscellaneous, Not In File 07/03/24
--- OUTSIDE RECORDS SUMMARY | 2025-03-06 10:45 | XMS_ITS | Clinical Summary ---
Author Organization [facility] al Address [address] [place] [address] Care Team Providers Care Steel Melter Name Role Phone Christopher Rodriguez MD Primary Care Provider [phone] Lamberto Castillo MD Unavailable [phone] Miscellaneous, Not In File Unavailable Unava [...] elevated myocardial infarction) 0 06/26/2024 CAD in kiana artery 06/25/2024 Assessment & Plan (07/01/2024 2:12 [...] 06/29- pneumothorax resolved on post pull CXR Surgical History Surgery Date Site/Laterality Comments KNEE SURGERY Bilateral arthroscopic SHOULDER SURGERY HERNIA REPAIR KNEE ARTHROSCOPY W/ LATERAL RELEASE Bilateral knees ? Date FRACTURE SURGERY Right wrist >15 years Medical History Medical History Date Comments Hyperlipidemia Stroke (HCC) PFO (patent foramen ovale) Arthritis 09/2019 in hands Brain concussion 02/2018 GI (gastrointestinal bleed) Hemorrhoids Pneumothorax, postoperative 06/28/2024 Family History Medical History Relation Name Comments Alcohol abuse Father Jackson Chaves Alzheimer's disease Father Jackson Chaves Hearing loss Father Jackson Chaves Heart attack Father Jackson Chaves Heart disease Father Jackson Chaves Memory loss Father Jackson Chaves Obesity Father Jackson Chaves Alcohol abuse Mother Elizabeth Rowland COPD Mother Elizabeth Rowland Cancer Mother Elizabeth Rowland Hearing loss Mother Elizabeth Rowland Relation Name Status Comments Brother 1 Alive Brother 2 Alive Father Jackson Chaves (Age 92) Mother Elizabeth Rowland (Age 87) Social History Tobacco Use Types Packs/Day Years [...] on file 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 Gender Identity Male 04/09/2020 1:01 PM CDT Sexual Orientation Straight 04/09/2020 1: 01 PM CDT Obstetrics History Last Filed Vital Signs Vital Sign Reading [...] 08/24/2024 9:27 AM CDT Plan of Treatment Health Maintenance Due Date Last Done Comments Colon Cancer Screening-Colonoscopy 1955 Depression Screening 1955 Hepatitis C Screening 1955 Prostate Cancer Screening-PSA 1955 Hepatitis B Screening 1973 Pneumococcal vaccine 65+ (1 of 1 - PCV) 2005 Zoster Vaccine (1 of 2) 2005 Well Visit 65+ 2020 Influenza Vaccine (Season Ended) 2025 07/11/20 18 Fall Risk Assessment 07/03/2025 07/03/2024 DTaP/Tdap/Td Vaccine (2 - Td or Tdap) 10/03/202801/2018 Medical Devices Implanted Type Area Change Management Expert Device Identifier Shelf Expiration Date Model / Serial / Lot Camarena Vascular 9-Pfo-025 Amplatzer 25mm 18mm 2 Disk Self Expandable Delivery System Patent - [id number] Implanted:Qty: 1 on 08/03/2019 by Aamir Fernandez MD PhD at [facility] [employer] 04/29/2024 9-PFO-025 / / [id number] [employer] Suture [place]ack Cor Knot Pre Loaded Fastener Device Micro Titanium 0 92811 - [id number] Implanted:Qty: 4 on 06/26/2024 by Lamberto Castillo MD at [facility] N/A: Heart [employer] [id number] 03/30/2026 35688 / / [id number] Camarena Vascular System Closure Repair Femoral Artery Suture Mediated Perclose Prostyle 89216-08 - [id number] Implanted:Qty: 1 on 06/26/2024 by Lamberto Castillo MD at [facility] Right: Femoral [employer] [id number] 02/27/2025 53845-78 / / [id number] [employer] Device Closure Fibertape Sternal Cerclage Blunt Needle Ar-7289 - [id number] Implanted:Qty: 3 on 06/26/2024 by Lamberto Castillo MD at [facility] N/A: Chest [employer] [id number] AR-7289 / / [employer] Plate Bone Low Profile 6 Hole H Shape Sternum Ti 115.102.06 - [id number] Implanted:Qty: 2 on 06/26/2024 by Don Vora MD at [facility] N/A: Chest [employer] 115.102.0 6 / / [employer] Plate Bone Low Profile 10 Hole [place] Sternum Ti 115.106.10 - [id number] Implanted:Qty: 1 on 06/26/2024 by Don Vora MD at [facility] N/A: Chest [employer] 115.106.1 0 / / [employer] Screw Bone Slf Drl Full Thread Locking 3.5x14mm Ti 100.035.14 - [id number] Implanted:Qty: 6 on 06/26/2024 by Don Vora MD at [facility] N/A: Chest [employer] 100.035.1 4 / / [employer] Screw Bone Slf Drl Full Thread Locking 3.5x16mm Ti 100.035.16 - [id number] Implanted:Qty: 6 on 06/26/2024 by Don Vora MD at [facility] N/A: Chest [employer] 100.035.1 6 / / [employer] Screw Bone Slf Drl Full Thread Locking 3.5x18mm Ti 100.035.18 - [id number] Implanted:Qty: 10 on 06/26/2024 by Don Vora MD at [facility] N/A: Chest [employer] 100.035.1 8 / / Insurance MEDICARE MEDICARE [employer] SENIOR SUPPLEMENT Advance Directives For more information, please contact: [phone] * Full Code (Latest Code Status on File) Date Activated Date Inactivated Comments 06/25/2024 8:11 PM 07/03/2024 3:37 PM * Full Code Date Activated Date Inactivated Comments 08/03/2019 9:14 AM 08/03/2019 8:19 PM Care Teams Steel Melter Relationship Specialty Start Date End Date Christopher Rodriguez MD PCP - General Family Medicine 11/01/19 Lamberto Castillo MD [address] [facility] [address] [place] [address] Surgeon Cardiothoracic Surgery 07/03/24 Miscellaneous, Not In File 07/03/24
--- OUTSIDE RECORDS SUMMARY | 2025-03-06 10:45 | XMS_ITS | Clinical Summary ---
Author Organization [facility] Address [address] [place] [address] Care Team Providers Care Ruby On Rails Software Developer Name Role Phone Christopher Rodriguez MD Primary Care Provider [phone] Social History Tobacco Use Types Packs/Day Years Used Date Smoking Tobacco: Never Assessed Sex and Gender Information Value Date Recorded Sex Assigned at Not on file Legal Sex Male 11:08 PM CDT Gender Identity Not on file Sexual Orientation Not on file Plan of Treatment Health Maintenance Due Date Last Done Comments Hepatitis C Virus (HCV) Screening 1955 Colonoscopy 2000 Colorectal Cancer Screening 2000 Cologuard 2005 Immunochemical Fecal Occult Blood 2005 Pneumococcal Immunization (50+ years) (1 of 1 - PCV) 2005 Zoster Immunization (1 of 2) 2005 PSA Discussion 2010 Influenza Immunization (#1) 2024 10/0 10/2019, 08/08/2019, 07/11/2018 SARS-COV-2 Immunization ( season) 2024 05/19/2022, 08/23/2021, 01/10/2021, Additional history exists Respiratory Syncytial Virus (RSV) Immunization (Adult) (1 - 1-dose 75+ series) 2030 DTaP/Tdap/Td Immunization Discontinued 10/03/2018 TdaP Immunization Completed 10/03/2018 Hepatitis B Immunization Aged Out No longer eligible based on patient's age to complete this topic Meningococcal Immunization (ACWY) Aged Out No longer eligible based on patient's age to complete this topic Rotavirus Immunization Aged Out No lo nger eligible based on patient's age to complete this topic Care Teams Ruby On Rails Software Developer Relationship Specialty Start Date End Date Christopher Rodriguez MD [address] [place] [address] [address] [place] [address] PCP - General Family Medicine 06/29/24
--- OUTSIDE RECORDS SUMMARY | 2025-03-06 10:45 | XMS_ITS | Encounter Summary ---
Author Organization [facility] Address [address] [facility] [address] [place] [address] Phone Care Team Providers Care Bale Sewer Name Role Phone Christopher Rodriguez MD Primary Care Provider [phone] Lamberto Castillo MD Unavailable [phone] Miscellaneous, Not In File Unavailable Unava ilable Encounter Details Date Type Department Care Team (Late st Contact Info) Description 07/17/2024 Telephone [facility] [address] [facility] Advanced Medicine 8th [place] [address] [place] [address] Lamberto Castillo MD [address] [facility] [address] [place] [address] Social History Tobacco Use Types Packs/Day Years Used Date Smoking Tobacco: Never Smokeless Tobacco: Never Alcohol Use Standard Drinks/Week Comments Never 0 (1 standard drink = 0.6 oz pur e alcohol) OASIS D0700: Social Isolation Answer Da te Recorded Frequency of experiencing loneliness or isolatio n Sometimes 07/04/2024 OASIS A1250: Transportation Answer Date Recorded Lack of Transportation (Medical) No 07/04/2024 Lack of Transportation (Non-Medical) No 07/04/2024 Patient Unable or Declines to Respond No 07/04/2024 OASIS B1300: Health Literacy Answer Lobo e Recorded Frequency of needing help to read materials from doctor or pharmacy Patient unable to respond 07/04/2024 Personal Safety Answer Date Recorded Have you ever been in or are you currently in a harmful physical or emotional relationship or is someone making you feel afraid or unsafe? 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
--- OUTSIDE RECORDS SUMMARY | 2025-03-06 10:45 | XMS_ITS | Clinical Summary ---
Author Organization [facility] [employer] Address [address] [place] [address] Care Team Providers Care Administrative Aide Name Role Phone Amauri Poon MD Primary Care Provider [phone] Source Comments [facility] [employer],non-owned Affiliates and Associated Physician Practices is amultiple site organization consisting of ambulatory clinics and hospital sitesin [place], [place], [place] and [place]. This disclosure is being madepursuant to the Care Everywhere program and may not contain all information available regarding this patient. Last updated 18.[facility] [employer] Allergies No known active allergies Medications * Be aware that medications may not be up to date on this document. Alwaysverify current medications with the patient. Ezetimibe-Simvasta tin (VYTORIN PO) Act pedro pablo Testosterone Cypionate (DEPO-TESTOSTERONE IM) Active Family History Medical History Relation Name Comments CAD (Coronary Artery Disease) Father Cancer - Other Mother Relation Name Status Comments Father Mother Social History Tobacco Use Types Packs/Day Years Used Date Smoking Tobacco: Never Smokeless Tobacco: Never Sex and Gender Information Value Date Recorded Sex Assigned at Not on file Legal Sex Male 9:04 AM PLANETARIUM TECHNICIAN Gender Identity Not on file Sexual Orientation Not on file Last Filed Vital Signs Vital Sign Reading Time Taken Comments Blood Pressure 142/88 11/21/2017 3:15 PM PLANETARIUM TECHNICIAN Pulse 80 11/21/2017 3:15 PM PLANETARIUM TECHNICIAN Temperature 38.9 C (102.1 F) 11/21/2017 3:15 PM PLANETARIUM TECHNICIAN Respiratory Rate 16 11/21/2017 3:15 PM PLANETARIUM TECHNICIAN Oxygen Saturation 97% 11/21/2017 3:15 PM PLANETARIUM TECHNICIAN Inhaled Oxygen Concentration - - Weight 83.9 kg (185 lb) 11/21/2017 3:15 PM PLANETARIUM TECHNICIAN Height 175.3 cm (5' 9 ) 11/21/2017 3:15 PM PLANETARIUM TECHNICIAN Body Mass Index 27.32 11/21/2017 3:15 PM PLANETARIUM TECHNICIAN Plan of Treatment Health Maintenance Due Date Last Done Comments COLOGUARD (AGES 45-75) - COL ON CA SCREENING 1955 COLON MONITORING 1955 COLONOSCOPY - COLON CA SCREENING 1955 CT COLONOGRAPHY - COLON CA SCREENING 1955 Colorectal Cancer Screening 1955 FIT - COLON CA SCREENING 1955 FLEX SIG - COLON CA SCREENING 1955 HEPATITIS C SCREENING 11/17/1973 DTAP/TDAP/TD VACCINES (1 - Tdap) 1974 PNEUMOCOCCAL VACCINE 50+ (1 of 1 - PCV) 2005 ZOSTER VACCINE (1 of 2) 2005 SCREENING FOR DIABETES 11/21/2017 COVID-19 VACCINE ( - 2023-2 5 season) 2024 DEPRESSION SCREENING 10/31/2024 INFLUENZA VACCINE (Season Ended) 2025 Respiratory Syncytial Virus (RSV) Vaccine Pt: or over 60 yrs (1 - 1-dose 75+ series) 2030 HEPATITIS B VACCINE Aged Out No longe r eligible based on patient's age to complete this topic HIB VACCINE Aged Out No longer eligi ble based on patient's age to complete this topic HPV VACCINE Aged Out No longer eligi ble based on patient's age to complete this topic MENINGOCOCCAL (Group B) VACC INE SHARED DECISION-MAKING Aged Out No longer eligibl e based on patient's age to complete this topic MENINGOCOCCAL GROUPS A/C/Y/W VACCINE Aged Out No longer eligible b ased on patient's age to complete this topic Insurance [facility] Care Teams Administrative Aide Relationship Specialty Start Date End Date Amauri Poon MD [address] [place] [address] PCP - General Family Medicine 11/21/17
[2025-03-06 13:47] LABS: Basophils Absolute Auto 0.1 K/mm3 (0.0-0.1); Eosinophils Absolute Auto 0.1 K/mm3 (0-0.3); Eosinophils Percent Auto 2.3 % (0-4.4); Hematocrit 47.1 % (42.0-52.0); Hemoglobin 14.8 g/dL (14.0-18.0); Immature Granulocyte Absolute 0.02 K/mm3 (0.00-0.031); Immature Granulocyte Percent A 0.4 % (0-0.5); Lymphocytes Absolute Auto 1.64 K/mm3 (0.9-3.2); Lymphocytes Percent Auto 34.3 % (18.3-44.2); Mean Corpuscular HGB Conc 31.4 g/dl (32-36); Mean Corpuscular Volume 89.2 fl (80-100); Mean Platelet Volume 9.1 fl (7.4-10.4); Monocytes Absolute Auto 0.4 K/mm3 (0.1-0.6); Neutrophils Absolute Auto 2.5 K/mm3 (1.3-6.7); Platelet Count Result 274 k/mm3 (150-375); Red Blood Count 5.28 M/mm3 (4.6-6.20); Red Cell Distribution Width 13.4 % (11.5-14.5); White Blood Count 4.8 K/mm3 (4.5-10.0)
[2025-03-06 13:58] LABS: Alanine Aminotransferase 24 U/L (6-50); Albumin Level 4.6 g/dL (3.5-5.1); Alkaline Phosphatase 94 U/L (38-126); Anion Gap 10 mmol/L (4-12); Aspartate Amino Transferase 73 U/L (17-59); Bilirubin,Total 1.5 mg/dL (0.2-1.3); Blood Urea Nitrogen 21 mg/dL (9-20); Calcium 9.1 mg/dL (8.4-10.2); Carbon Dioxide 25 mmol/L (22-30); Chloride 104 mmol/L (98-107); Cholesterol 172 mg/dL (0-200); Estimated Glomerular Filt Rate > 60; Glucose 87 mg/dL (65-110); HDL Direct 61 mg/dL; Potassium 4.2 mmol/L (3.4-5.0); Sodium 139 mmol/L (137-145); Triglycerides 61 mg/dL (<150)
[2025-03-06 14:10] LABS: LDL Cholesterol Direct 79 mg/dL
[2025-03-06 14:30] LABS: Prostate Specific Antigen 0.5 ng/mL (< OR = 4.0)
[2025-03-11 13:28] LABS: Testosterone Total 468 ng/dL (250-1100)
== END 2025-03-06 10:03 | disposition home or self-care (01) ==
LOC: ANHGOSHLAB 10:03
PROVIDERS: PCP Family Medicine; Visit Provider Family Medicine
DX: R41.89 Other symptoms and signs involving cognitive functions and awareness (principal); E29.1 Testicular hypofunction; Z12.5 Encounter for screening for malignant neoplasm of prostate; I65.29 Occlusion and stenosis of unspecified carotid artery; I21.4 Non-ST elevation (NSTEMI) myocardial infarction
CPT/HCPCS: 36415; 80053; 80061; 82607; 84153; 84403; 84443; 85025; G0103

== ENCOUNTER 2025-04-02 12:25 | Outpatient (CLI) | payer MEDICARE, SELFPAY ==
--- NOTE | ~2025-04-02 | MR_ITS ---
MRI of the brain Clinical History: Other signs and symptoms of cognitive function Technique: Axial and sagittal T1-weighted images were acquired. These were followed by axial T2-weigh lisy, diffusion weighted, gradient, and FLAIR images. Findings: No significant signal abnormality seen in the brain parenchyma. No acute infarct, intracran ial hemorrhage, or mass lesion. There are several tiny focal areas of hyperintense FLAIR signal in th e periventricular and subcortical white matter bilaterally. Ventricles and subarachnoid spaces are unremarkable. Orbits are unremarkable. Paranasal sinuses and m astoid air cells are essentially clear. Major intracranial flow-voids are intact. Sagittal midline structures are intact. IMPRESSION: No acute infarct, intracranial hemorrhage, or mass lesion. Minimal chronic white matter changes. Reviewed, dictated and finalized at location .
== END 2025-04-02 12:26 | disposition home or self-care (01) ==
LOC: GOSHIMG 12:25
PROVIDERS: PCP Family Medicine; Visit Provider Family Medicine
DX: I65.23 Occlusion and stenosis of bilateral carotid arteries (principal)
CPT/HCPCS: 70551

== ENCOUNTER 2025-04-02 13:10 | Outpatient (CLI) | payer MEDICARE, SELFPAY ==
--- NOTE | ~2025-04-02 | US_ITS ---
EXAMINATION: US carotid duplex BI DATE: 04/02/2025 14:31 INDICATION: Screening. Mini strokes. TECHNIQUE: Grayscale, color Doppler, and pulsed Doppler images of the cervical carotid arteries were obtained. The degree of vessel stenosis is placed in one of the following categories: normal, <50%, 5 0-69%, >=70% but less than near-occlusion, near-occlusion, or total occlusion. Note that percent sten osis relative to normal distal artery lumen diameter is indirectly measured from velocity measurement s as described by Luis, et al. Radiology 2003; 229:340-346. Notes: Normal: Peak systolic velocity <125 centimeters/sec and no plaque <50%. Peak systolic velocity <125 ( EDV <40; ICA/CCA PSV ratio <2.0; used these factors only a tandem lesions or low cardiac output or co ntralateral disease) 50-69 %: PSV 125-230 (EDV 40-100; ratio 2-4) >= 70% but less than near occlusion: PSV greater than 230 (EDV > 100; ratio> 4.0) Near Occlusion: PSV that is variable; markedly narrowed lumen Occlusion: Absent flow on color/spectral Doppler and no lumen on ortiz scale. COMPARISON: None. FINDINGS: RIGHT: The right common carotid artery (CCA) peak systolic velocity (PSV) is 89 cm/s. The right internal car otid artery (ICA) PSV is 60 cm/s. The right ICA end-diastolic velocity (EDV) is 27 cm/s. The right IC A/CCA PSV ratio is 0.7. The external carotid artery (ECA) PSV is 93 cm/s. There is antegrade flow in the right vertebral artery. LEFT: The left CCA PSV is 63 cm/s. The left ICA PSV is 69 cm/s. The left ICA EDV is 31 cm/s. The left ICA/C CA PSV ratio is 1.2. The ECA PSV is 89 cm/s. There is antegrade flow in the left vertebral artery. IMPRESSION: 1. Less than 50% stenosis in the right internal carotid artery by sonographic criteria. 2. Less than 50% stenosis in the left internal carotid artery by sonographic criteria. Reviewed, dictated and finalized at location A. IMPRESSION: 1. Less than 50% stenosis in the right internal carotid artery by sonographic c mahesh. 2. Less than 50% stenosis in the left internal carotid artery by sonographic purvi wood.
--- OUTSIDE RECORDS SUMMARY | 2025-04-02 13:23 | XMS_ITS | Referral Summary ---
Author Organization [facility] Address [address] [place] [address] Care Team Providers Care Toe Closing Machine Tender Name Role Phone Christopher Rodriguez MD Primary Care Provider [phone] Lamberto Castillo MD Unavailable [phone] Miscellaneous, Not In File Unavailable Unava ilable Allergies No known active allergies Medications acetaminophen 500 mg capsule Take 2 capsules (1,000 mg total) by mouth every 6 (six) hours as needed for pain 07/03/2024 Active clopidogreL (PLAVIX) 75 mg tablet Take 1 tablet (75 mg total) by mouth daily 90 tablet 2 08/24/2024 08/24/20 25 Active atorvastatin (LIPITOR) 80 mg tablet Take 1 tablet (80 mg total) by mouth nightly 90 tablet 2 08/24/2024 08/24/20 25 Active Active Problems Problem Noted Date Diagnosed [...] elevated myocardial infarction) 0 06/26/2024 CAD in [place] artery 06/25/2024 Assessment & Plan (07/01/2024 2:12 [...] on file 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 Gender Identity Male 04/09/2020 1:01 PM CDT [...] 9:27 AM CDT Height 175.3 cm (5' 9) 08/24/2024 9:27 AM CDT Body Mass Index 24.66 08/24/2024 9:27 AM CDT Plan of Treatment Not on file Medical Devices Implanted Type Area Telegraph Installer Device Identifier Shelf Expiration Date Model / Serial / Lot Camarena Vascular 9-Pfo-025 Amplatzer 25mm 18mm 2 Disk Self Expandable Delivery System Patent - [id number] Implanted:Qty: 1 on 08/03/2019 by Aamir Fernandez MD PhD at [facility] C[employer]rena Vascular 04/29/2024 9-PFO-025 / / [id number] [employer] Suture [place] Cor Knot Pre Loaded Fastener Device Micro Titanium 0 [id number] - [id number] Implanted:Qty: 4 on 06/26/2024 by Lamberto Castillo MD at [facility] N/A: Heart [employer] [id number] 03/30/2026 98966 / / [id number] Camarena Vascular System Closure Repair Femoral Artery Suture Mediated Perclose Prostyle 83813-72 - [id number] Implanted:Qty: 1 on 06/26/2024 by Lamberto Castillo MD at [facility] Right: Femoral C[employer]rena Vascular [id number] 02/27/2025 78117-38 / / [id number] [employer] Device Closure Fibertape Sternal [place] Blunt Needle Ar-7289 - [id number] Implanted:Qty: 3 on 06/26/2024 by Lamberto Castillo MD at [facility] N/A: Chest [employer] [id number] AR-7289 / / [employer] Plate Bone Low Profile 6 Hole H Shape Sternum Ti 115.102.06 - [id number] Implanted:Qty: 2 on 06/26/2024 by Don Vora MD at [facility] N/A: Chest [employer] 115.102.0 6 / / [employer] Plate Bone Low Profile 10 Hole [place] Sternum Ti 115.106.10 - [id number] Implanted:Qty: 1 on 06/26/2024 by Don Vora MD at [facility] N/A: Chest [employer] 115.106.1 0 / / [employer] Screw Bone Slf Drl Full Thread Locking 3.5x14mm Ti 100.035.14 - [id number] Implanted:Qty: 6 on 06/26/2024 by Don Vora MD at [facility] N/A: Chest [employer] 100.035.1 4 / / [employer] Screw Bone Slf Drl Full Thread Locking 3.5x16mm Ti 100.035.16 - [id number] Implanted:Qty: 6 on 06/26/2024 by Don Vora MD at [facility] N/A: Chest [employer] 100.035.1 6 / / [employer] Screw Bone Slf Drl Full Thread Locking 3.5x18mm Ti 100.035.18 - [id number] Implanted:Qty: 10 on 06/26/2024 by Don Vora MD at [facility] N/A: Chest [employer] 100.035.1 8 / / Insurance MEDICARE MEDICARE [employer] [facility] MEDICARE Advance Directives For more information, please contact: [phone] * Full Code (Latest Code Status on File) Date Activated Date Inactivated Comments 06/25/2024 8:11 PM 07/03/2024 3:37 PM * Full Code Date Activated Date Inactivated Comments 08/03/2019 9:14 AM 08/03/2019 8:19 PM Care Teams Toe Closing Machine Tender Relationship Specialty Start Date End Date Christopher Rodriguez MD PCP - General Family Medicine 11/01/19 Lamberto Castillo MD Surgeon Cardiothoracic Surgery 07/03/24 Miscellaneous, Not In File 07/03/24
--- OUTSIDE RECORDS SUMMARY | 2025-04-02 13:23 | XMS_ITS | Encounter Summary ---
Author Organization [facility] Address [address] [place] [address] Phone Care Team Providers Care It Quality Analyst Name Role Phone Christopher Rodriguez MD Primary Care Provider [phone] Lamberto Castillo MD Unavailable [phone] Miscellaneous, Not In File Unavailable Unava ilable Encounter Details Date Type Department Care Team (Late st Contact Info) Description 07/17/2024 Telephone [facility] [address] 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
--- OUTSIDE RECORDS SUMMARY | 2025-04-02 13:23 | XMS_ITS | Clinical Summary ---
Author Organization [facility] Address [address] [place] [address] Care Team Providers Care Geopolitics Teacher Name Role Phone Amauri Poon MD Primary Care Provider [phone] Source Comments [facility],non-owned Affiliates and Associated Physician Practices is amultiple site organization consisting of ambulatory clinics and hospital sitesin [place], [place], [place] and [place]. This disclosure is being madepursuant to the Care Everywhere program and may not contain all information available regarding this patient. 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 Gender Identity Not on file Sexual Orientation Not on file Last Filed Vital Signs Vital Sign Reading Time Taken Comments Blood Pressure 142/88 11/21/2017 3:15 PM INVESTMENT PROFESSIONAL Pulse 80 11/21/2017 3:15 PM INVESTMENT PROFESSIONAL Temperature 38.9 C (102.1 F) 11/21/2017 3:15 PM INVESTMENT PROFESSIONAL Respiratory Rate 16 11/21/2017 3:15 PM INVESTMENT PROFESSIONAL Oxygen Saturation 97% 11/21/2017 3:15 PM INVESTMENT PROFESSIONAL Inhaled Oxygen Concentration - - Weight 83.9 kg (185 lb) 11/21/2017 3:15 PM INVESTMENT PROFESSIONAL Height 175.3 cm (5' 9) 11/21/2017 3:15 PM INVESTMENT PROFESSIONAL Body Mass Index 27.32 11/21/2017 3:15 PM INVESTMENT PROFESSIONAL Plan of Treatment Health Maintenance Due Date [...] patient's age to complete this topic Insurance [facility] Care Teams Geopolitics Teacher Relationship Specialty Start Date End Date Amauri Poon MD [address] [place] [address] PCP - General Family Medicine 11/21/17
--- OUTSIDE RECORDS SUMMARY | 2025-04-02 13:23 | XMS_ITS | Clinical Summary ---
Author Organization Address [address] [place] [address] Care Team Providers Care Cloth Stock Sorter Name Role Phone Christopher Rodriguez MD Primary Care Provider [phone] Social History Tobacco Use Types Packs/Day Years [...] age to complete this topic Care Teams Cloth Stock Sorter Relationship Specialty Start Date End Date Christopher Rodriguez MD [address] [place] [address] [address] [place] [address] PCP - General Family Medicine 06/29/24
--- OUTSIDE RECORDS SUMMARY | 2025-04-02 13:23 | XMS_ITS | Clinical Summary ---
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 Gender Identity Male 04/09/2020 1:01 PM CDT [...] 2020 Influenza Vaccine (Season Ended) 2025 07/11/20 Fall Risk Assessment 07/03/2025 07/03/2024 DTaP/Tdap/Td Vaccine (2 - Td or Tdap) 10/03/202801/2018 Medical Devices Implanted Type Area Aircraft Instrument Mechanic Device Identifier Shelf Expiration Date Model / Serial / Lot Camarena Vascular 9-Pfo-025 Amplatzer 25mm 18mm 2 Disk Self Expandable Delivery System Patent - [id number] Implanted:Qty: 1 on 08/03/2019 by Aamir Fernandez MD PhD at [facility] [employer] V[employer] 04/29/2024 9-PFO-025 / / [id number] [employer] Suture [place] Cor Knot Pre Loaded Fastener Device Micro Titanium 0 61267 - [id number] Implanted:Qty: 4 on 06/26/2024 by Lamberto Castillo MD at [facility] N/A: Heart [employer] [id number] 03/30/2026 52492 / / [id number] C[employer]rena Vascular System Closure Repair Femoral Artery Suture Mediated Perclose Prostyle 73265-96 - [id number] Implanted:Qty: 1 on 06/26/2024 by Lamberto Castillo MD at [facility] Right: Femoral C[employer] Vascular [id number] 02/27/2025 00018-71 / / [id number] [employer] Device Closure Fibertape Sternal [place] Blunt Needle Ar-7289 - [id number] Implanted:Qty: 3 on 06/26/2024 by Lamberto Castillo MD at [facility] N/A: Chest [employer] [id number] AR-7289 / / [employer] Plate Bone Low Profile 6 Hole H Shape Sternum Ti 115.102.06 - [id number] Implanted:Qty: 2 on 06/26/2024 by Don Vora MD at [facility] N/A: Chest [employer] 115.102.0 6 / / [employer] Plate Bone Low Profile 10 Hole [place] Sternum Ti 115.106.10 - [id number] Implanted:Qty: 1 on 06/26/2024 by Don Vora MD at [facility] N/A: Chest [employer] 115.106.1 0 / / [employer] Screw Bone Slf Drl Full Thread Locking 3.5x14mm Ti 100.035.14 - [id number] Implanted:Qty: 6 on 06/26/2024 by Don Vora MD at [facility] N/A: Chest [employer] 100.035.1 4 / / [employer] Screw Bone Slf Drl Full Thread Locking 3.5x16mm Ti 100.035.16 - [id number] Implanted:Qty: 6 on 06/26/2024 by Don Vora MD at [facility] N/A: Chest [employer] 100.035.1 6 / / [employer] Screw Bone Slf Drl Full Thread Locking 3.5x18mm Ti 100.035.18 - [id number] Implanted:Qty: 10 on 06/26/2024 by Don Vora MD at [facility] N/A: Chest [employer] 100.035.1 8 / / Insurance MEDICARE MEDICARE [employer] SENIOR SUPPLEMENT MEDICARE Advance Directives For more information, please contact: [phone] * Full Code (Latest Code Status on File) Date Activated Date Inactivated Comments 06/25/2024 8:11 PM 07/03/2024 3:37 PM * Full Code Date Activated Date Inactivated Comments 08/03/2019 9:14 AM 08/03/2019 8:19 PM Care Teams Tire Service Supervisor Relationship Specialty Start Date End Date Christopher Rodriguez MD PCP - General Family Medicine 11/01/19 Lamberto Castillo MD Surgeon Cardiothoracic Surgery 07/03/24 Miscellaneous, Not In File 07/03/24
== END 2025-04-02 13:11 | disposition home or self-care (01) ==
PROVIDERS: PCP Family Medicine; Visit Provider Family Medicine
DX: I65.23 Occlusion and stenosis of bilateral carotid arteries (principal)
CPT/HCPCS: 93880

== ENCOUNTER 2025-04-05 08:03 | Emergency (ER) | payer MEDICARE, SELFPAY ==
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
[2025-04-05 08:20] VITALS: BP 153/88; PULSE 85; RESP 16; TEMP 36.4; O2SAT 99
[2025-04-05 08:26] LABS: EDCOVIDSCREEN Negative (Negative); EDINFLUASCREEN Negative (Negative); EDINFLUBSCREEN Negative (Negative); EDSTREPNEGPOS1 Negative (Negative)
== END 2025-04-05 08:54 | disposition home or self-care (01) ==
PROVIDERS: Emergency Provider Nurse Practitioner Family; PCP Family Medicine
DX: J06.9 Acute upper respiratory infection, unspecified (principal); R05.9 Cough, unspecified; H10.33 Unspecified acute conjunctivitis, bilateral; Z20.822 Contact with and (suspected) exposure to COVID-19; I10 Essential (primary) hypertension; M19.042 Primary osteoarthritis, left hand; M19.041 Primary osteoarthritis, right hand; I87.1 Compression of vein; Z86.73 Personal history of transient ischemic attack (TIA), and cerebral infarction without residual deficits; I25.2 Old myocardial infarction
CPT/HCPCS: 87081; 87426; 87804; 87880; 99213; G0463

== ENCOUNTER 2025-04-23 10:39 | Outpatient (CLI) | payer MEDICARE, SELFPAY ==
--- NOTE | ~2025-04-23 | XR_ITS ---
XR hand RT min 3V Ordering provider: Clarissa Metz MD History: . M18.11 - Unilateral primary osteoarthritis of first carpo... . Comparison: February 10, 2023 FINDINGS: BONES: No acute fracture or dislocation. JOINT SPACES: Narrowing of the proximal and distal interphalangeal joints. Osteoarthritic changes of the first carpometacarpal and scaphotrapezial joints. SOFT TISSUES: Normal. IMPRESSION: No acute osseous abnormality right hand. Polyarticular osteoarthritic changes. Reviewed, dictated and finalized at location A.
== END 2025-04-23 10:40 | disposition home or self-care (01) ==
PROVIDERS: PCP Family Medicine; Visit Provider Plastic Surgery
DX: M18.11 Unilateral primary osteoarthritis of first carpometacarpal joint, right hand (principal)
CPT/HCPCS: 73130